=== PATIENT | female | born 1960 | race Caucasian/White ===

== ENCOUNTER 2018-06-20 16:06 | Emergency (ER) | payer MEDICARE, MEDICAID ==
[~2018-06-20] VITALS: Ht 154.9 cm; Wt 46.0 kg
[~2018-06-20 16:06] MED LIST: IBUP-24 PO; REM15T PO
[2018-06-20 16:32] VITALS: BP 109/82
== END 2018-06-20 17:32 | disposition left against medical advice (07) ==
LOC: ER 16:07
DX: H93.11 Tinnitus, right ear (principal); Z53.21 Procedure and treatment not carried out due to patient leaving prior to being seen by health care provider

== ENCOUNTER 2019-02-11 10:19 | Emergency (ER) | payer MEDICARE, MEDICAID ==
[~2019-02-11] VITALS: Ht 154.9 cm; Wt 45.0 kg
[2019-02-11 10:27] VITALS: BP 125/79
[2019-02-11] MEDS ORDERED: TETanus/Pertussis (Acell)/Diphther VAC/PF (Tdap-Adult) 0.5ml syringe IM ONE (10:55)
[2019-02-11] MEDS ORDERED: LIDOcaine 1% w/epiNEPHrine 1:200,000 30ml vial IM ONE (10:55)
[2019-02-11] MEDS ORDERED: sulfamethoxazole/trimethoprim DS (800/160mg) tablet PO ONE (10:55)
[2019-02-11] MEDS ORDERED: cephalexin 250mg capsule PO ONE (10:55)
[2019-02-11] MEDS ORDERED: SULF1TAB49 PO (11:53)
[2019-02-11] MEDS ORDERED: CEPH-572 PO (11:53)
--- NOTE | 2019-02-11 13:01 | NUR ---
PT STATES UNABLE TO WAIT THE HOUR FOR JUDD PEREZ WILL BORROW MONEY FROM [employer] FOR RX AND GET THEM FILLED TODAY.
== END 2019-02-11 13:01 | disposition home or self-care (01) ==
LOC: ER 10:20
DX: L02.811 Cutaneous abscess of head [any part, except face] (principal); L02.511 Cutaneous abscess of right hand; F12.90 Cannabis use, unspecified, uncomplicated; F15.90 Other stimulant use, unspecified, uncomplicated; Z90.49 Acquired absence of other specified parts of digestive tract; Z88.0 Allergy status to penicillin; Z88.5 Allergy status to narcotic agent
CPT/HCPCS: 10060; 26010; 90471; 90715; 99284; J3490

== ENCOUNTER 2019-04-07 11:06 | Emergency (ER) | payer MEDICARE, MEDICAID ==
[~2019-04-07] VITALS: Ht 160 cm; Wt 52.0 kg
[2019-04-07 11:18] VITALS: BP 128/75
[2019-04-07] MEDS ORDERED: MUPI22OI30 TP (11:38)
[2019-04-07] MEDS ORDERED: SULF1TAB49 PO (11:38)
== END 2019-04-07 11:48 | disposition home or self-care (01) ==
LOC: ER 11:06
DX: R21 Rash and other nonspecific skin eruption (principal); F32.9 Major depressive disorder, single episode, unspecified; F20.9 Schizophrenia, unspecified; F17.200 Nicotine dependence, unspecified, uncomplicated; F12.90 Cannabis use, unspecified, uncomplicated; F15.90 Other stimulant use, unspecified, uncomplicated; F10.99 Alcohol use, unspecified with unspecified alcohol-induced disorder; Z90.49 Acquired absence of other specified parts of digestive tract; Z60.2 Problems related to living alone; Z98.890 Other specified postprocedural states; Z88.6 Allergy status to analgesic agent; Z88.0 Allergy status to penicillin; Z88.5 Allergy status to narcotic agent; Z79.899 Other long term (current) drug therapy; Y90.9 Presence of alcohol in blood, level not specified
CPT/HCPCS: 99283

== ENCOUNTER 2019-05-25 13:44 | Emergency (ER) | payer MEDICARE, MEDICAID ==
[~2019-05-25] VITALS: Ht 154.9 cm; Wt 52.0 kg
[2019-05-25] MEDS ORDERED: LIDOcaine 1% w/EPI 1:200,000 injection 10mL vial IM ONE (14:25)
[2019-05-25] MEDS ORDERED: LORazepam 2 mg/ml vial IM ONE (14:25)
[2019-05-25] MEDS ORDERED: LIDOcaine 1% w/epiNEPHrine 1:200,000 30ml vial IM ONE (14:30)
[2019-05-25] MEDS ORDERED: DOXY100C43 PO (15:08)
[2019-05-25 15:25] VITALS: BP 125/79
--- NOTE | 2019-05-25 15:25 | NUR ---
WOUND CULTURE SENT
--- NOTE | 2019-05-25 15:36 | NUR ---
PATIENT PROVIDED CHLORHEXIDINE SOAP TO WASH HER ENTIRE BODY WITH PER PA. PATIENT ALSO PROVIDED FOOD AND DRINK UPON DISCHARGE WELL DRESSING SUPPLIES
== END 2019-05-25 15:37 | disposition home or self-care (01) ==
LOC: ER 13:45
DX: L02.811 Cutaneous abscess of head [any part, except face] (principal); F32.9 Major depressive disorder, single episode, unspecified; F20.9 Schizophrenia, unspecified; F15.90 Other stimulant use, unspecified, uncomplicated; F12.90 Cannabis use, unspecified, uncomplicated; Z90.49 Acquired absence of other specified parts of digestive tract; Z98.890 Other specified postprocedural states; Z88.0 Allergy status to penicillin; Z88.8 Allergy status to other drugs, medicaments and biological substances; Z88.5 Allergy status to narcotic agent; Z79.899 Other long term (current) drug therapy
CPT/HCPCS: 10060; 87070; 96372; 99283; J2060; 87077; 87186

== ENCOUNTER 2019-05-27 10:17 | Emergency (ER) | payer MEDICARE, MEDICAID ==
[~2019-05-27] VITALS: Ht 154.9 cm; Wt 44.5 kg
[~2019-05-27 10:17] MED LIST changes: +DOXY100C43 PO
--- NOTE | 2019-05-27 11:30 | NUR ---
Pt brought from fast track to [facility]. All her personal property is being inventoried by TYRESE Mckee. Pt has a history of drinking and in the past has experienced withdrawals. Hospitalist to see pt and place orders. Pt laying in bed #24 eating a P&J and drinking fluids.
[2019-05-27 11:31] LABS: BASOPHILS % (AUTO) 0.6 % (0-1); EOSINOPHILS # (AUTO) 0.1 X10'3 (0-0.9); EOSINOPHILS % (AUTO) 1.2 % (0-6); HEMATOCRIT 43.7 % (35.0-45.0); HEMOGLOBIN 14.9 g/dl (12.0-16.0); LYMPHOCYTES # (AUTO) 1.9 X10'3 (1.1-4.8); LYMPHOCYTES % (AUTO) 44.3 % (21-51); MEAN CORPUSCULAR HEMOGLOBIN 32.1 PG (27.0-31.0); MEAN CORPUSCULAR HGB CONC 34.1 g/dL (33.0-36.5); MEAN CORPUSCULAR VOLUME 94.1 FL (78-98); MONOCYTES # (AUTO) 0.5 X10'3 (0-0.9); MONOCYTES % (AUTO) 12.1 % (2-12); NEUTROPHILS # (AUTO) 1.8 X10'3 (1.8-7.7); NEUTROPHILS % (AUTO) 41.8 % (42-75); PLATELET COUNT 218 X10'3 (140-440); RED BLOOD COUNT 4.65 X10'6 (4.20-5.60); RED CELL DISTRIBUTION WIDTH 13.2 % (11.5-14.5); WHITE BLOOD COUNT 4.4 X10'3 (4.5-11.0)
[2019-05-27 11:49] LABS: CLARITY,URINE CLEAR (Clear); COLOR,URINE YELLOW (Yellow); GLUCOSE, URINE NEGATIVE (Neg); KETONES,URINE NEGATIVE (Neg); LEUKOCYTE ESTERASE ,URINE NEGATIVE (Neg); NITRITES, URINE NEGATIVE (Neg); OCCULT BLOOD,URINE SMALL (Neg); PH,URINE 5.5 (4.8-8.0); PROTEIN,URINE NEGATIVE (Neg); UA COLLECTION TYPE CLN CATCH MIDSTREAM; UROBILINOGEN,URINE 0.2 E.U/dL (0.2-1.0)
[2019-05-27 11:51] LABS: ALANINE AMINOTRANSFERASE 20 U/L (12-78); ALBUMIN 3.7 G/DL (3.4-5.0); ALBUMIN/GLOBULIN RATIO 0.9 (1.1-1.5); ALKALINE PHOSPHATASE 87 IU/L (46-116); ANION GAP 10 (8-16); ASPARTATE AMINO TRANSFERASE 13 U/L (10-37); BILIRUBIN,TOTAL 0.2 MG/DL (0.1-1.0); BLOOD UREA NITROGEN 17 MG/DL (7-18); BUN/CREATININE RATIO 28.3 (6.6-38.0); CALCIUM 8.5 MG/DL (8.5-10.1); CHLORIDE 105 MMOL/L (99-107); GLUCOSE 91 MG/DL (70-104); POTASSIUM 3.8 MMOL/L (3.5-5.1); SODIUM 143 MMOL/L (135-145); TOTAL CARBON DIOXIDE 27.9 MMOL/L (24-32); TOTAL PROTEIN 7.7 G/DL (6.4-8.2); eGFR > 90 ML/MIN
[2019-05-27 11:52] LABS: URINE AMPHETAMINE SCREEN NEGATIVE (Neg); URINE BARBITUATE SCREEN NEGATIVE (Neg); URINE BENZODIAZEPINES SCREEN NEGATIVE (Neg); URINE CANNABINOID SCREEN POSITIVE (Neg); URINE COCAINE SCREEN NEGATIVE (Neg); URINE METHADONE SCREEN NEGATIVE (Neg); URINE OPIATE SCREEN NEGATIVE (Neg); URINE PHENCYCLIDINE SCREEN NEGATIVE (Neg)
[2019-05-27 11:56] LABS: MUCUS STRANDS MANY /LPF (Neg); SQUAMOUS EPITHELIAL CELL,UR FEW /LPF (FEW)
[2019-05-27 11:58] LABS: BACTERIA,URINE FEW /HPF (Neg); WBC,URINE 0-4 /HPF (0-4)
[2019-05-27 12:01] LABS: ACETAMINOPHEN < 2.0 UG/ML (10-30)
--- NOTE | 2019-05-27 12:33 | NUR ---
Per Juan Ahn, PA start CIWA Protocol. Pt continues to eat while sitting on her bed. Does not appear to be in distress at this time but continues to ask for a beer.
[2019-05-27] MEDS ORDERED: nicotine 14mg patch - 24hr TD ONE (12:40)
[2019-05-27] MEDS ORDERED: LORazepam 1 MG tablet PO ONE (12:55)
--- NOTE | 2019-05-27 13:45 | NUR ---
Pt sleeping; unable to wake to administer Gabapentin after administering Ativan 2mg.
[2019-05-27] MEDS: LORazepam 1 MG tablet PO PRN ×2 (14:16→19:24)
--- NOTE | 2019-05-27 15:12 | NUR ---
Pt sleeping supine. No distress. RR even and unlabored. Will continue to monitor.
--- NOTE | 2019-05-27 15:35 | NUR ---
Unable to do CIWA pt sleeping will not work with this nurse to complete CIWA. RR even and unlabored. Does not appear to be in distress.
--- NOTE | 2019-05-27 17:22 | NUR ---
PACKET WAS FAXED TO [facility].
--- NOTE | 2019-05-27 17:35 | NUR ---
Pt continues to sleep will not open her eyes to answer questions on CIWA. RR even and unlabored.
--- NOTE | 2019-05-27 18:22 | NUR ---
Pt just now woke up. Unable to continue CIWA protocol. She is awake now Tunde RN will assess for CIWA.
--- NOTE | 2019-05-27 19:00 | NUR ---
Patient is awake and oriented to place and situation. Patient exhibits anxiety. Patient is on CIWA protocol. Patient states she is still suicidal, her plan is to get hit by a car or overdose on pills. Patient denies voices or other hallucinations. Eye contact is intermittent. Patient is tearful. Patients bed is in direct view from the nurses station. Frequent rounding is being done for patient safety.
--- NOTE | 2019-05-27 19:25 | NUR ---
Patient scored a 17 on the CIWA protocol. Ativan 2 mg will be given.
[2019-05-27] MEDS ORDERED: gabapentin 300mg capsule PO SCH (21:00)
--- NOTE | 2019-05-27 21:40 | NUR ---
Patient sleeping quietly.
[2019-05-27 23:46] VITALS: BP 117/72
[2019-05-28] MEDS ORDERED: NO HOME MEDS (10:38)
== END 2019-05-27 23:52 | disposition home or self-care (01) ==
LOC: ER 10:17
DX: F32.9 Major depressive disorder, single episode, unspecified (principal); R45.851 Suicidal ideations; F20.9 Schizophrenia, unspecified; F12.90 Cannabis use, unspecified, uncomplicated; F15.90 Other stimulant use, unspecified, uncomplicated; F17.200 Nicotine dependence, unspecified, uncomplicated; Z90.49 Acquired absence of other specified parts of digestive tract; Z59.0 Homelessness; Z88.0 Allergy status to penicillin; Z88.5 Allergy status to narcotic agent
CPT/HCPCS: 36415; 80053; 80305; 80329; 81001; 84443; 85025; 99285

== ENCOUNTER 2019-05-27 22:29 | Inpatient (IN) | payer MEDICARE, MEDICAID ==
[~2019-05-27] VITALS: Ht 154.9 cm; Wt 46.2 kg
[2019-05-27] MEDS ORDERED: magnesium hydroxide 30ml (MOM) UD suspension PO PRN (23:25)
[2019-05-27] MEDS ORDERED: mag hydrox/Alum hydrox/simeth 30ml oral suspension PO PRN (23:25)
[2019-05-27] MEDS ORDERED: acetaminophen 325mg tablet PO PRN (23:25)
[2019-05-27] MEDS ORDERED: loperamide 2mg capsule PO PRN (23:25)
[2019-05-28] VITALS: BP 133/86
[2019-05-28 03:30] VITALS: BP 96/57
--- NOTE | 2019-05-28 03:39 | NUR ---
ADMIT NOTE: Legal hold: 5150 Exp 05/30 @ 2350 Client on involuntary status for DTS. Report received from nurse with use of SBAR. Why are they here: Pt is very depressed. She reported that she wants to all the time. Pt attempted to throw herself in front of a car 05/26/19. Pt stated "she stated "I can't take it anymore." Pt was trying to obtain pills to overdose and "I have been trying to drink myself to ." Pt reports "I have nothing to live for." Assessment What has happened this shift: Pt admitted to [facility] on 5150 for DTS. Pt arrives on unit at 2350 with LUAN Montoya. Pt presents as sedated, having a hard time keeping eyes open and mumbled/slurred speech. Pt received 2mg Ativan in ER prior to coming to unit. Pt is taken to the shower room where a 2 Nurse Skin Assessment is performed and is changed into clean scrubs. Charted and photographed two scabbed areas on right side of head. Pt had I&D done on 05/25 for cellulitis (according to notes drainage from procure was mostly just blood). Area is tender, drainage is dry, but has potential for additional drainage. Will need to monitor. Pt was started on Doxycycline 100mg q12h x 10 days. Pt has a HX of ETOH with last drink being 3 days ago. Pt is on a CIWA q8h x 3, then Dr. Johnson will reevaluate. Pt has a hx of methamphetamine use, but indicates she hasn't used in some time. Pt's appears to have an impaired gait, when asked if she is usally unsteady "I am not sure why I am like this." (likely due to Ativan.) S/I, H/I: S/I- will overdose on pills. A/VH: Pt denies. Sleep: See sleep assessment notation. ADL's: Independent -may need further evaluation due to sedation on admit Group attendance: bench jeweler, no group. Were meds taken: No medications scheduled. Any med S/E: None observed Mental Status Exam Appearance: Disheveled, looks older than stated age, wearing green unit scrubs. Eye contact: Eyes closed Behavior: Sedated, cooperative Speech: Slurred/mumbled, minimal Mood: Sedated Affect: Congruent Thought process: Thought Content: Cognition: Alert x2 Insight: Poor Judgment: Poor Interventions PRN's used: None Therapeutic interventions: 1:1 therapeutic assessment, orient to unit, IRLANDALAUREN, Q15 min safety checks. Restraints/seclusion/emergency medication: N/A Justification of Continued Inpatient Treatment: Pt is depressed and DTS requiring medication management to interrupt current crisis. Addendum: 05/28/19 at 0510 by Annabelle Corley RN Pt has an upper plate denture. Pt states she likes to keep it in even when she sleeps. Pt opted to keep Nicotine patch on left shoulder. Addendum: 05/28/19 at 0557 by Annabelle Corley RN Pt woke up A&O. Pt vaguely remembers coming up to the unit last night. Pt is anxious rubbing her hands and arms. Pt is unable to hold conversation because she is crying "I still don't want to live, but I have too; for my dog." Will administer Atarax 50 mg Pt's CIWA is 0, VS 117/79, HR 73, RR 14, O2 95.
[2019-05-28] MEDS ORDERED: NICOTINE POLACRILEX 2 MG LOZENGE BC PRN (04:05)
[2019-05-28] MEDS: hydrOXYzine 25 MG tablet PO PRN ×2 (05:47→19:05)
[2019-05-28 07:00] VITALS: BP 108/69
[2019-05-28 07:33] LABS: HEMOGLOBIN A1C 5.5 % (4.5-6.2)
[2019-05-28 07:38] LABS: CHOL/HDL RATIO 3.8 (0.00-4.99); CHOLESTEROL 172 MG/DL (0-200); HDL CHOLESTEROL 45 MG/DL (35-60); LDL CHOLESTEROL 115 MG/DL (50-100); TRIGLYCERIDES 117 MG/DL (20-135)
[2019-05-28] MEDS ORDERED: nicotine 14mg patch - 24hr TD SCH (08:00)
[2019-05-28] MEDS: DOXYCYCLINE 100MG CAPSULE PO SCH ×2 (08:19→17:36)
[2019-05-28] MEDS: gabapentin 300mg capsule PO SCH ×3 (08:19→21:22)
[2019-05-28] MEDS: LORazepam 1 MG tablet PO PRN ×2 (09:55→19:34)
[2019-05-28] MEDS ORDERED: QUEtiapine 25mg tablet PO SCH (10:25)
[2019-05-28] MEDS ORDERED: NO HOME MEDS (10:38)
--- NOTE | 2019-05-28 13:13 | NUR ---
Malnutrition consult, patient reports recent weight loss without trying and poor intake d/t poor appetite. Weights 42.5 kg on standing scale. Review of documented weight history shows patient is chronically low weight. Within the past year patient has had weight fluctuations of 46 kg 06/2018 on chair scale, 52 kg 05/25/2019 on standing scale, and now 42.5 kg on standing scale. It is unlikely that patient lost 10 kg in three days. Patient appears to be around her UBW, with a total of about 3.5 kg, 8%, lost in one year. She is 89% of IBW. She ate 50% of her breakfast this morning. No edema. Noted that patient is homeless. Has dentures for upper teeth. Pending MD notes and history. Will continue to follow patient, monitor PO intake and course of care. Follow up tomorrow pending more information. Addendum: 05/28/19 at [address] Amended: Links added.
--- NOTE | 2019-05-28 15:59 | NUR ---
Nursing Progress Note: [place] Legal hold: 5150 Exp 05/30 @ 2350 Client on involuntary status for DTS. Report received from nurse Johanny RN with use of SBAR. Why are they here: Pt admitted to [facility] on 5149 for DTS. Pt is very depressed. She reported that she wants to all the time. Pt attempted to throw herself in front of a car 05/26/19. Pt stated "she stated "I can't take it anymore." Pt was trying to obtain pills to overdose and "I have been trying to drink myself to ." Pt reports "I have nothing to live for." Assessment What has happened this shift: Pt resting at change of shift. At breakfast presents as sedated with mumbled/slurred speech. She is compliant with her medications but is insistent on them "not working" and "never working" and her being helpless and hopeless. Shortly after breakfast pt became very agitated and verbally aggressive. She was found harassing/yelling anyone who would walk past her room, ripping up papers, throwing blankets and checking doors in attempt to leave. She is resistive to care and unable to be calmed by conversation as she is unwilling to talk in a meaningful way. She reports, "Will you just give me a pill of Cyanide? I don't want to live, I don't know why you're wasting your time! I'm going to play nice and get my ducks in a row so I can leave here and kill myself. I swear if anyone gets close to me I'll punch you all out." Decision Science Analyst attempted to decipher pts support system, she reports having a few friends, one of which is taking care of her dog (friend-Krystina). She becomes very guarded when speaking about her friends. She perseverates on being homeless and helpless. Decision Science Analyst unable to easily de-escalate. D/t acute agitation and aggressiveness she was given Seroquel 50mg PO Once along with Ativan 1mg PO. Pt found resting the rest of the shift. S/I, H/I: S/I- will overdose on pills. A/VH: Denies Sleep: 4.5hrs NOC ADL's: Independent Group attendance: Slept, too agitated to attend Were meds taken: Yes Any med S/E: None observed Mental Status Exam Appearance: Disheveled, looks older than stated age, wearing green unit scrubs. Eye contact: Direct, menacing Behavior: Volatile Speech: Slurred/mumbled, pressured, vulgar Mood: Labile Affect: Congruent Thought process: goal oriented Thought Content: Obscenities towards peers and staff, homelessness, fixations on dying, helplessness & hopelessness Cognition: Alert x2 (self & "hospital") Insight: Poor Judgment: Poor Interventions PRN's used: Ativan X1, Seroquel X1 Therapeutic interventions: 1:1 therapeutic assessment, orient to unit, CIWA, Q15 min safety checks. Restraints/seclusion/emergency medication: N/A Justification of Continued Inpatient Treatment: Pt is depressed and DTS requiring medication management to interrupt current crisis.
[2019-05-28] MEDS: lactobacillus rhamnosus 10,000 MMU CELLS/CAPSULE PO SCH (21:22)
[2019-05-29] MEDS: LORazepam 1 MG tablet PO PRN ×3 (02:12→17:20)
--- NOTE | 2019-05-29 02:52 | NUR ---
Nursing Progress Note: Legal hold: 5149 Exp 05/30 @ 2350 Client on involuntary status for DTS. Report received from nurse Jennifer RN with use of SBAR. Why are they here: Pt admitted to [facility] on 5149 for DTS. Pt is very depressed. She reported that she wants to all the time. Pt attempted to throw herself in front of a car 05/26/19. Pt stated "she stated "I can't take it anymore." Pt was trying to obtain pills to overdose and "I have been trying to drink myself to ." Pt reports "I have nothing to live for." Assessment What has happened this shift: Pt pacing halls and presents extremely agitated at shift change. Pt refused vitals, but was compliant with assessment. Pt was agitated and labile, "Why am I here." "Nothing is helping." "You know I am going to kill my self as soon as I get out of here." "I am out of here in two days and you can't stop me." "I need a rope, that is all that I need." Pt is difficult to deescalate, pt refuses Ativan, but will take an Atarax. Pt is negative that no medication will work and all she wants to do is . "I just want to leave an kill myself and I will take my dog with me." Pt perseverating on wanting to smoke, pt refused a lozenge -pt wearing a 14 mg Nicotine Patch will endorse to day shift about a possible increase to the 21 mg patch. Pt continues to walk the halls swearing under her breath, rubbing her hands and arms making comments about wanting to . This commercial lines underwriter was able to get pt to take prn Ativan with effect. Pt rested for about 1 1/2 woke up was much more calm and cooperative. Pt was compliant with HS medications, then went back to sleep. Pt woke up around 0230 and wanted to shower. Exp she could shower in the morning. Pt was mildly agitated, but remained calm. Pt was able to have a calm conversation. She didn't remember how labile she was the day before. Pt apologized, pt became emotional "all I want is a house just like everyone else." Pt still a little agitated at requested "another one of those pills." Pt continued to talk calmly until this commercial lines underwriter got up and let pt sleep. S/I, H/I: S/I- will overdose on pills. A/VH: Pt denies. 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 Eye contact: Direct, menacing Behavior: Volatile, agitated Speech: Slurred/mumbled, pressured Mood: Labile, depressed Affect: Congruent Thought process: Tangential, perseverating Thought Content: Homelessness, fixations on dying, helplessness & hopelessness Cognition: Alert x2 (self & "hospital") Insight: Poor Judgment: Poor Interventions PRN's used: Atarax, Ativan x2 Therapeutic interventions: 1:1 therapeutic assessment, CIWA q8h, medication administration/education/monitoring, attempted contract for safety, Q15 min safety checks. Restraints/seclusion/emergency medication: N/A Justification of Continued Inpatient Treatment: Pt is depressed and DTS requiring medication management to interrupt current crisis.
[2019-05-29] MEDS: gabapentin 300mg capsule PO SCH ×3 (07:11→21:04)
[2019-05-29] MEDS: lactobacillus rhamnosus 10,000 MMU CELLS/CAPSULE PO SCH ×2 (07:11→21:04)
[2019-05-29] MEDS: hydrOXYzine 25 MG tablet PO PRN ×2 (07:11→17:18)
[2019-05-29 08:00] VITALS: BP 105/84
[2019-05-29] MEDS: DOXYCYCLINE 100MG CAPSULE PO SCH ×2 (08:18→17:18)
[2019-05-29] MEDS: nicotine 21mg patch - 24 hr TD SCH (08:18)
--- NOTE | 2019-05-29 14:00 | NUR ---
Administered Ativan 1mg for agitation/anxiety, med did not scan.
--- NOTE | 2019-05-29 14:40 | NUR ---
Malnutrition consult, patient reports recent weight loss without trying and poor intake d/t poor appetite. Weights 42.5 kg on standing scale. Review of documented weight history shows patient is chronically low weight. Within the past year patient has had weight fluctuations of 46 kg 06/2018 on chair scale, 52 kg 05/25/2019 on standing scale, and now 42.5 kg on standing scale. It is unlikely that patient lost 10 kg in three days. Patient appears to be around her UBW, with a total of about 3.5 kg, 8%, lost in one year. She is 89% of IBW. She ate 50% of her breakfast yesterday and dinner, refused lunch. Patient admitted with severe depression and SI. No edema. Noted that patient is homeless. Has dentures for upper teeth. Patient has heavy EtOH history, drinking two pints a day, may benefit from PO thiamine and folic acid, d/w bedside RN. Per bedside RN patient is ravenous and happy when meals arrive, eating well today. Will continue to follow. Addendum: 05/29/19 at [address] Amended: Links added.
--- NOTE | 2019-05-29 18:23 | NUR ---
Nursing Progress Note Legal hold: 5149 Exp 05/30 @ 2350 Client on involuntary status for DTS. Report received from nurse Annabelle LANDAVERDE with use of SBAR. Why are they here: Pt admitted to [facility] on 5149 for DTS. Pt is very depressed. She reported that she wants to all the time. Pt attempted to throw herself in front of a car 05/26/19. Pt stated "she stated "I can't take it anymore." Pt was trying to obtain pills to overdose and "I have been trying to drink myself to ." Pt reports "I have nothing to live for." Assessment What has happened this shift: Patient is observed resting at change of shift. When she wakes she anxious, restless and mild agitation. Over coffee she tells RN that she just wants to . She becomes tearful and shakey when discussing how she hates living life. RN allowed patient time to state how she felt and offered patient a snack. Patient thankfully ate what was offered. RN provided PRNs needed for anxiety and patients mood never became agitated as in prior shifts. Patient helped peers and attended groups. Patient responds well to positive reinforcement, listening and food. S/I, H/I: S/I no plan stated A/VH: Denies Sleep: 7.75hrs NOC and rested during the day ADL's: Independent Group attendance: yes Were meds taken: Yes Any med S/E: None observed Mental Status Exam Appearance: Disheveled Eye contact: Direct Behavior: depressed Speech: soft tone, increased rate when agitated Mood: depressed Affect: Congruent Thought process: goal oriented Thought Content: not wanting to be alone Cognition: Alert x2 (self & "hospital") Insight: Poor Judgment: Poor Interventions PRN's used: Ativan X2 and Atarax x2 Therapeutic interventions: 1:1 assessment, encouragement to express thoughts and feelings, encouragement to perform personal hygiene, encouragement to attend group, medication administration/education/monitoring, Q15 min safety checks. Restraints/seclusion/emergency medication: N/A Justification of Continued Inpatient Treatment: Continued therapeutic support and medication adjustment/management needed to provide stabilization, prevent decompensation, improve coping mechanisms decreasing risk to patient and re-admittance.
[2019-05-29 19:00] VITALS: BP 111/76
[2019-05-29 21:00] VITALS: BP 108/72
[2019-05-29] MEDS: prazosin 1mg capsule PO SCH (21:00)
[2019-05-29] MEDS: traZODone 50mg tablet PO PRN (21:11)
[2019-05-30] MEDS: acetaminophen 325mg tablet PO PRN (00:38)
[2019-05-30] MEDS: LORazepam 1 MG tablet PO PRN ×4 (00:41→15:45)
--- NOTE | 2019-05-30 01:58 | NUR ---
Nursing Progress Note: Legal hold: 5149 Exp 05/30 @ 2350 Client on involuntary status for DTS. Report received from nurse Jennifer RN with use of SBAR. Why are they here: Pt admitted to [facility] on 5149 for DTS. Pt is very depressed. She reported that she wants to all the time. Pt attempted to throw herself in front of a car 05/26/19. Pt stated "she stated "I can't take it anymore." Pt was trying to obtain pills to overdose and "I have been trying to drink myself to ." Pt reports "I have nothing to live for." Assessment What has happened this shift: Pt was visible on unit, noticeably less agitated and anxious compared to last night. Pt is still depressed, but seems to be more goal oriented and talks about how she was able to asssit one of her peers with eating his meals. Pt states she likes to help people, this science writer believes this gives her a purpose. Pt is more positive. Pt is medication compliant. Pt continues to be have wheezing in her upper lobes. Will endorse to day shift for possible RT consult (pt has hx of COPD). Pt's Minipress was held due to low BP 108/74. Pt c/o of being hungry, gave pt PB&J. Assessed abscess on right side of head, no drainage noted. Pt had showered and cleaned up wound area. CIWA q8h. S/I, H/I: Passive - no plan stated A/VH: Pt denies. Sleep: See sleep assessment notation. 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 Eye contact: Good Behavior: Cooperative, mildly anxious Speech: Soft, mumbled at times Mood: Depressed, anxious Affect: Congruent Thought process: Linear Thought Content: Discharge to [facility] Cognition: Alert x2 (self & "hospital") Insight: Poor Judgment: Poor Interventions PRN's used: Ativan, Tylenol Therapeutic interventions: 1:1 therapeutic assessment, CIWA q8h, medication administration/education/monitoring, Q15 min safety checks. Restraints/seclusion/emergency medication: N/A Justification of Continued Inpatient Treatment: Pt is depressed and DTS requiring medication management to interrupt current crisis.
[2019-05-30 08:00] VITALS: BP 111/78
[2019-05-30] MEDS: nicotine 21mg patch - 24 hr TD SCH (08:04)
[2019-05-30] MEDS: DOXYCYCLINE 100MG CAPSULE PO SCH ×2 (08:06→16:35)
[2019-05-30] MEDS: buPROPion SR 150mg tablet PO SCH (08:06)
[2019-05-30] MEDS: gabapentin 300mg capsule PO SCH ×3 (08:06→19:52)
[2019-05-30] MEDS: lactobacillus rhamnosus 10,000 MMU CELLS/CAPSULE PO SCH ×2 (08:07→19:52)
[2019-05-30] MEDS: hydrOXYzine 25 MG tablet PO PRN ×2 (10:35→16:35)
--- NOTE | 2019-05-30 17:27 | NUR ---
Nursing Progress Note: Legal hold: 5149 Exp 05/30 @ 2350 Client on involuntary status for DTS. Report received from nurse AKHIL Mondragon with use of SBAR. Why are they here: Pt admitted to [place] on 5149 for DTS. Pt is very depressed. She reported that she wants to all the time. Pt attempted to throw herself in front of a car 05/26/19. Pt stated "she stated "I can't take it anymore." Pt was trying to obtain pills to overdose and "I have been trying to drink myself to ." Pt reports "I have nothing to live for." Assessment What has happened this shift: The patient was awake at change of shift. Irritable all day and stating I'm leaving here today. Stated she was going to "kill myself" numerous times today and was angry about not being "released" right away. CIWA scoring required Ativan twice this shift. When informed of 5249 hold she became very angry and abusive to staff. However, this patient does respond well to kindness and reassurance. She is frightened of being homeless and does not know where she will "go." S/I, H/I: Suicidal, wants to hang herself A/VH: Pt denies. Sleep: Napped ADL's: Independent Group attendance: Yes Were meds taken: Medication compliant Any med S/E: None observed Mental Status Exam Appearance: Disheveled, looks older than stated age, wearing green unit scrubs and a wig Eye contact: Good Behavior: Agitation Speech: Soft, mumbled at times Mood: Depressed, anxious Affect: Angry Thought process: Linear Thought Content: wants to kill herself Cognition: Alert x2 (self & "hospital") Insight: Poor Judgment: Poor Interventions PRN's used: Ativan, Atarax Therapeutic interventions: 1:1 therapeutic assessment, CIWA q8h, medication administration/education/monitoring, Q15 min safety checks. Restraints/seclusion/emergency medication: N/A Justification of Continued Inpatient Treatment: Pt is depressed and DTS requiring medication management to interrupt current crisis.
[2019-05-30] MEDS: prazosin 1mg capsule PO SCH (19:52)
[2019-05-30 20:00] VITALS: BP 124/76
[2019-05-31] MEDS: acetaminophen 325mg tablet PO PRN (02:15)
[2019-05-31] MEDS: hydrOXYzine 25 MG tablet PO PRN ×3 (02:15→17:17)
--- NOTE | 2019-05-31 04:36 | NUR ---
Nursing Progress Note: Legal hold: 525 Client on involuntary status for DTS. Report received from nurse AKHIL Cheney with use of SBAR. Why are they here: Pt admitted to [facility] on 5150 for DTS. Pt is very depressed. She reported that she wants to all the time. Pt attempted to throw herself in front of a car 05/26/19. Pt stated "she stated "I can't take it anymore." Pt was trying to obtain pills to overdose and "I have been trying to drink myself to ." Pt reports "I have nothing to live for." Assessment What has happened this shift: The patient resting in room at change of shift. During 1:1, pt quickly became agitated, agry and verbally abusive towards this RN. "I don't want you to be my nurse! You're a bitch. You can't help me. I just want to and I will do it as soon as I leave." Pt is upset regarding her 525, as she continues "I'm being held against my will and you will pay for it. Give me meds and get out of my room!" Reassurance and kindness did not help calm pt; this RN adminstered Hs medications early and provided pt with a sandwich. Pt went to sleep and awoke around 2am requesting pain medication and additional sleep aid. Pt stated "I am sorry for how I acted. That wasn't okay." Pt had a snack then returned to sleep. CIWA scoring completed; pt did not receive Ativan this shift. S/I, H/I: +SI with plan to hang herself with a rope A/VH: Denies Sleep: See Sleep Assessment ADL's: Independent Group attendance: N/A Were meds taken: Yes Any med S/E: None observed nor reported Mental Status Exam Appearance: Disheveled, looks older than stated age, wearing green unit scrubs and a wig Eye contact: Good Behavior: Pacing halls, Resting in room, Attending snack Speech: Soft, Occasionally Mumbled, Intermittently Pressured Mood: Depressed, Agitated, Labile Affect: Angry Thought process: Linear Thought Content: wants to kill herself Cognition: Alert x2 (self & "hospital") Insight: Poor Judgment: Poor Interventions PRN's used: Atarax, Tylenol Therapeutic interventions: 1:1 therapeutic assessment, CIWA q8h, medication administration/education/monitoring, Q15 min safety checks. Restraints/seclusion/emergency medication: N/A Justification of Continued Inpatient Treatment: Pt is depressed and DTS requiring medication management to interrupt current crisis.
[2019-05-31 07:33] VITALS: BP 112/78
[2019-05-31] MEDS: nicotine 21mg patch - 24 hr TD SCH (07:58)
[2019-05-31] MEDS: lactobacillus rhamnosus 10,000 MMU CELLS/CAPSULE PO SCH ×2 (07:58→20:31)
[2019-05-31] MEDS: gabapentin 300mg capsule PO SCH ×3 (07:58→20:31)
[2019-05-31] MEDS: buPROPion SR 150mg tablet PO SCH (07:58)
[2019-05-31] MEDS: DOXYCYCLINE 100MG CAPSULE PO SCH ×2 (08:01→17:26)
[2019-05-31] MEDS: LORazepam 1 MG tablet PO PRN ×2 (08:01→14:08)
[2019-05-31] MEDS ORDERED: tuberculin, purif. prot. deriv. 5 units/0.1ml ID ONE (13:25)
--- NOTE | 2019-05-31 17:00 | NUR ---
Nursing Progress Note: Legal hold: 5249 Client on involuntary status for DTS. Report received from nurse Ese Fitzpatrick RN with use of SBAR. Why are they here: Pt admitted to [facility] on 5149 for DTS. Pt is very depressed. She reported that she wants to all the time. Pt attempted to throw herself in front of a car 05/26/19. Pt stated "she stated "I can't take it anymore." Pt was trying to obtain pills to overdose and "I have been trying to drink myself to ." Pt reports "I have nothing to live for." Assessment What has happened this shift: Pt. asleep at start of shift. Pt. is irritable, hyperverbal, impulsive, and difficult to redirect. Pt. given ativan 1mg po with good effect. Pt. took medications but did not eat all her breakfast stating, "I don't eat eggs!". Pt. then went to her room and slept. 1:1 done at bedside. Pt. states, "I wanted to kill myself because I thought I was all alone... I realize I have a lot of people who care about me. And I want to be there for my dog AJ. I'm no longer suicidal. Pt.'s CIWA in AM was 6. Pt.'s CIWA discontinued today. Pt. reporting her anxiety is 7/10 and received Ativan with good effect. Pt. refused her PPD test, stating, "I already received one at [facility] 1 month ago" RN received ERICA from patient and attempted to contact [facility] to receive documentation of negative PPD, RN called [facility] but was unable to speak to anyone and unable leave a voice mail. S/I, H/I: Denies A/VH: Denies Sleep: Pt. napped x2 ADL's: Independent Group attendance: No Were meds taken: Yes. Pt. refused PPD test. Any med S/E: None observed nor reported Mental Status Exam Appearance: Pt. showered today. presents clean in street clothes and wig. Eye contact: Good Behavior: Pacing halls, Resting in room, Attending snack Speech: Soft, Occasionally Mumbled, Intermittently Pressured Mood: Irritable and anxious in AM but pt.'s mood became more stable in the afternoon. Affect: Congruent with mood. Thought process: Linear Thought Content: wants to kill herself Cognition: A&Ox4 Insight: Fair Judgment: Poor Interventions PRN's used: Atarax, Ativan Therapeutic interventions: Maintained a safe and supportive environment, provided clear and simple instructions, monitored behaviors and need for intervention, provided positive encouragement, and maintained Q 15 min safety checks. Restraints/seclusion/emergency medication: N/A Justification of Continued Inpatient Treatment: Pt. continues to await court date, in the next two weeks or so per Dr. Johnson. She continues to requires a safe and supportive environment.
[2019-05-31 19:00] VITALS: BP 127/76
[2019-05-31 20:00] VITALS: BP 125/84
[2019-05-31] MEDS: traZODone 50mg tablet PO PRN (20:31)
[2019-05-31] MEDS: prazosin 1mg capsule PO SCH (20:31)
--- NOTE | 2019-06-01 00:58 | NUR ---
Nursing Progress Note: Legal hold: 5249 Client on involuntary status for DTS. Report received from nurse Noni RN with use of SBAR. Why are they here: Pt admitted to [facility] on 5149 for DTS. Pt is very depressed. She reported that she wants to all the time. Pt attempted to throw herself in front of a car 05/26/19. Pt stated "she stated "I can't take it anymore." Pt was trying to obtain pills to overdose and "I have been trying to drink myself to ." Pt reports "I have nothing to live for." Assessment What has happened this shift: Pt walking about the unit at change of shift. Pt overall demeanor much calmer than previous night and pt stated "I'm doing okay. I have a reason to live. I want to go to the [facility]; I hope they take me but if not, it's okay, there is someone who will." Pt expressed missing her dog, EDDA. She states she is anxious, saying she is nervous about her placement interview tomorrow. Pt is cooperative and pleasant but does not brighten during assessment. She requests her sleeping aid this evening and some extra snacks before turning in to sleep. S/I, H/I: Denies A/VH: Denies Sleep: See Sleep Assessment ADL's: Independent Group attendance: N/A Were meds taken: Yes Any med S/E: None observed nor reported Mental Status Exam Appearance: Disheveled, looks older than stated age, wearing personal clothes and nonskid socks Eye contact: Good Behavior: Pacing halls, Resting in room, Attending snack, watching TV, Coloring Speech: Soft, Occasionally Mumbled, Intermittently Pressured Mood: Anxious /10 Affect: Blunted Thought process: Linear Thought Content: Nervous about interview for placement tomorrow, wanting sandwiches Cognition: A/Ox3 (off for time) Insight: Poor Judgment: Poor Interventions PRN's used: Trazodone Therapeutic interventions: 1:1 therapeutic assessment, CIWA q8h, medication administration/education/monitoring, Q15 min safety checks. Restraints/seclusion/emergency medication: N/A Justification of Continued Inpatient Treatment: Pt is depressed and DTS requiring medication management to interrupt current crisis.
[2019-06-01 07:23] VITALS: BP 128/77
[2019-06-01] MEDS: lactobacillus rhamnosus 10,000 MMU CELLS/CAPSULE PO SCH ×2 (07:43→19:30)
[2019-06-01] MEDS: nicotine 21mg patch - 24 hr TD SCH (07:43)
[2019-06-01] MEDS: buPROPion SR 150mg tablet PO SCH (07:44)
[2019-06-01] MEDS: LORazepam 1 MG tablet PO PRN ×2 (07:44→15:02)
[2019-06-01] MEDS: DOXYCYCLINE 100MG CAPSULE PO SCH ×2 (07:44→17:49)
[2019-06-01] MEDS: gabapentin 300mg capsule PO SCH ×3 (07:44→19:29)
--- NOTE | 2019-06-01 14:20 | NUR ---
Initial: PO intake is fair, eating average of 50-75% of meals from regular diet. Per nursing notes she gets snacks as well. Pt was refusing meals when admitted, intake appears to be improving. Recommend: 1. continue regular diet 2. bowel care as needed 3. weekly weights 4. encourage PO intake Addendum: 06/01/19 at [address] Amended: Links added.
--- NOTE | 2019-06-01 17:25 | NUR ---
Nursing Progress Note: Legal hold: 5249 Client on involuntary status for DTS. Report received from nurse AKHIL Mondragon with use of SBAR. Why are they here: Pt admitted to [facility] on 5149 for DTS. Pt is very depressed. She reported that she wants to all the time. Pt attempted to throw herself in front of a car 05/26/19. Pt stated "she stated "I can't take it anymore." Pt was trying to obtain pills to overdose and "I have been trying to drink myself to ." Pt reports "I have nothing to live for." Assessment What has happened this shift: Pt on her bed resting at the start of shift. Morning administration of medications given at bedside during 1:1 assessment. Pt requesting Ativan but had it at 0611. Pt spent part of the morning on the phone and becoming anxious after each phone call. She was unwilling to share the reason for her upset. Pt attended both groups with much prompting and encouragement. She was interviewed by [facility] today. S/I, H/I: Denies A/VH: Denies Sleep: Awake all shift ADL's: Independent Group attendance: Yes Were Meds taken: Yes Any med S/E: None observed nor reported Mental Status Exam Appearance: Disheveled, looks older than stated age, wearing personal clothes and nonskid socks. changes clothes frequently along with putting her wig on and taking it off. Eye contact: fair Behavior: easily agitated Speech: Soft, Pressured Mood: Anxious 6/10 Affect: Blunted Thought process: Linear Thought Content: Cognition: A/Ox3 Insight: Poor Judgment: Poor Interventions PRN's used: Ativan Therapeutic interventions: 1:1 therapeutic assessment, encouragement and prompts to go to groups, medication administration/education/monitoring, Q15 min safety checks. Restraints/seclusion/emergency medication: N/A Justification of Continued Inpatient Treatment: Pt is depressed and DTS requiring medication management to interrupt current crisis.
[2019-06-01] MEDS: hydrOXYzine 25 MG tablet PO PRN (17:49)
--- NOTE | 2019-06-01 18:45 | NUR ---
[facility] REFERRAL: [facility] referral completed and faxed. [facility] referral completed and faxed. Pt understands program and expectations for services through both resources. Chelly Edwards, Nurse Navigator NET MAKING SUPERVISOR [id number] Supervised by Lorne Sofia, [id number]
[2019-06-01] MEDS: traZODone 50mg tablet PO PRN (19:29)
[2019-06-01] MEDS: prazosin 1mg capsule PO SCH (19:29)
[2019-06-01 20:00] VITALS: BP 121/80
--- NOTE | 2019-06-01 23:48 | NUR ---
Nursing Progress Note: Legal hold: 5249 Client on involuntary status for DTS. Report received from nurse AKHIL Bishop with use of SBAR. Why are they here: Pt admitted to [facility] on 5149 for DTS. Pt is very depressed. She reported that she wants to all the time. Pt attempted to throw herself in front of a car 05/26/19. Pt stated "she stated "I can't take it anymore." Pt was trying to obtain pills to overdose and "I have been trying to drink myself to ." Pt reports "I have nothing to live for." Assessment What has happened this shift: Pt pacing in halls at start of shift. Pt became increasingly agitated. Began yelling at a staff member who was unaware of plan to go to [facility]. Pt yelling "I can leave anytime I want" Pt had no PRNs available at the time. Jonathan Kranthi contacted by phone he declined to order extra medications for pt. Pt spent time in her room talking with SW. Given warm blanket and hot tea. Pt able to calm down. Came to group room for snack took all HS meds. Cooperative with care. Sleeping at this time. S/I, H/I: Denies A/VH: Denies Sleep: Asleep at this time ADL's: Independent Group attendance: Yes Were Meds taken: Yes Any med S/E: None observed nor reported Mental Status Exam Appearance: Disheveled, looks older than stated age, wearing personal clothes and nonskid socks. changes clothes frequently along with putting her wig on and taking it off. Eye contact: fair Behavior: easily agitated Speech: Soft, Pressured Mood: Anxious 6/10 Affect: Blunted Thought process: Linear Thought Content: Wants to go to [facility] upset about involuntary hold Cognition: A/Ox3 Insight: Poor Judgment: Poor Interventions PRN's used: none Therapeutic interventions: 1:1 therapeutic assessment, encouragement and prompts to go to groups, medication administration/education/monitoring, Q15 min safety checks. Restraints/seclusion/emergency medication: N/A Justification of Continued Inpatient Treatment: Pt is depressed and DTS requiring medication management to interrupt current crisis.
[2019-06-02 07:56] VITALS: BP 113/74
[2019-06-02] MEDS: lactobacillus rhamnosus 10,000 MMU CELLS/CAPSULE PO SCH ×2 (07:58→20:20)
[2019-06-02] MEDS: gabapentin 300mg capsule PO SCH ×3 (07:59→20:21)
[2019-06-02] MEDS: DOXYCYCLINE 100MG CAPSULE PO SCH ×2 (07:59→17:33)
[2019-06-02] MEDS: buPROPion SR 150mg tablet PO SCH (07:59)
[2019-06-02] MEDS: nicotine 21mg patch - 24 hr TD SCH (07:59)
--- NOTE | 2019-06-02 11:02 | NUR ---
DISCHARGE PLANNING: Patient declined by the [facility]. Offered to call [facility] for her, she declined.
[2019-06-02] MEDS: LORazepam 1 MG tablet PO PRN ×2 (12:35→20:22)
--- NOTE | 2019-06-02 13:06 | NUR ---
DISCHARGE PLANNING: Sent in referral packet for whole person care, they meet again Oct. 8 and will have no information prior to that on if she is accepted into the program, client aware.
--- NOTE | 2019-06-02 16:39 | NUR ---
Nursing Progress Note: Legal hold: 5249 Client on involuntary status for DTS. Report received from nurse Johanny RN with use of SBAR. Why are they here: Pt admitted to [facility] on 5149 for DTS. Pt is very depressed. She reported that she wants to all the time. Pt attempted to throw herself in front of a car 05/26/19. Pt stated "she stated "I can't take it anymore." Pt was trying to obtain pills to overdose and "I have been trying to drink myself to ." Pt reports "I have nothing to live for." Assessment What has happened this shift: Pt on her bed sleeping at the start of shift. Morning administration of medications given at bedside during 1:[address] [facility] admission and became upset threatening to escape then called a friend for a ride to pick her up. Pt confronted on wanting to leave. Pt contracted for safety stating she would not "really run." Pt given Ativan due to level of agitation and anxiety. S/I, H/I: Denies A/VH: Denies Sleep: Awake all shift ADL's: Independent Group attendance: Yes Were Meds taken: Yes Any med S/E: None observed nor reported Mental Status Exam Appearance: still has not showered Eye contact: fair Behavior: easily agitated Speech: Pressured Mood: Anxious 5/10 Affect: Blunted Thought process: Linear Thought Content: Leaving here to "drink." Cognition: A/Ox3 Insight: Poor Judgment: Poor Interventions PRN's used: Ativan Therapeutic interventions: 1:1 therapeutic assessment, encouragement and prompts to go to groups, safety contract, medication administration/education/monitoring, Q15 min safety checks. Restraints/seclusion/emergency medication: N/A Justification of Continued Inpatient Treatment: Pt is depressed and DTS requiring medication management to interrupt current crisis.
[2019-06-02] MEDS: hydrOXYzine 25 MG tablet PO PRN (19:04)
[2019-06-02 20:00] VITALS: BP 110/69
[2019-06-02] MEDS: prazosin 1mg capsule PO SCH (20:21)
--- NOTE | 2019-06-02 22:01 | NUR ---
Nursing Progress Note: Legal hold: 5249 Client on involuntary status for DTS. Report received from nurse Jennifer RN with use of SBAR. Why are they here: Pt admitted to [facility] on 5149 for DTS. Pt is very depressed. She reported that she wants to all the time. Pt attempted to throw herself in front of a car 05/26/19. Pt stated "she stated "I can't take it anymore." Pt was trying to obtain pills to overdose and "I have been trying to drink myself to ." Pt reports "I have nothing to live for." Assessment What has happened this shift: Pt up in flores at the start of shift. Pt aproched this nurse asking for Ativan stating that the prior nurse refused to give it to her. Checked Mar and she had one a few hrs prior. Pt agitated over not getting her way. S/I, H/I: Denies A/VH: Denies Sleep: Awake all shift ADL's: Independent Group attendance: Yes Were Meds taken: Yes Any med S/E: None observed nor reported Mental Status Exam Appearance: still has not showered Eye contact: fair Behavior: easily agitated Speech: Pressured Mood: Anxious 5/10 Affect: Blunted Thought process: Linear Thought Content: Leaving here to "drink." Cognition: A/Ox3 Insight: Poor Judgment: Poor Interventions PRN's used: AtivanAtarax Therapeutic interventions: 1:1 therapeutic assessment, encouragement and prompts to go to groups, safety contract, medication administration/education/monitoring, Q15 min safety checks. Restraints/seclusion/emergency medication: N/A Justification of Continued Inpatient Treatment: Pt is depressed and DTS requiring medication management to interrupt current crisis.
[2019-06-03 07:48] VITALS: BP 111/69
[2019-06-03 08:00] VITALS: BP 111/69
[2019-06-03] MEDS: lactobacillus rhamnosus 10,000 MMU CELLS/CAPSULE PO SCH ×2 (08:01→20:00)
[2019-06-03] MEDS: buPROPion SR 150mg tablet PO SCH (08:01)
[2019-06-03] MEDS: gabapentin 300mg capsule PO SCH ×3 (08:01→21:00)
[2019-06-03] MEDS: hydrOXYzine 25 MG tablet PO PRN ×2 (08:02→16:52)
[2019-06-03] MEDS: nicotine 21mg patch - 24 hr TD SCH (08:05)
[2019-06-03] MEDS: DOXYCYCLINE 100MG CAPSULE PO SCH ×2 (08:21→17:53)
[2019-06-03] MEDS: LORazepam 1 MG tablet PO PRN ×2 (08:21→17:54)
--- NOTE | 2019-06-03 10:24 | NUR ---
Nursing Progress Note: Legal hold: 5249 Client on involuntary status for DTS. Report received from nurse Johanny RN with use of SBAR. Why are they here: Pt admitted to [facility] on 5149 for DTS. Pt is very depressed. She reported that she wants to all the time. Pt attempted to throw herself in front of a car 05/26/19. Pt stated "she stated "I can't take it anymore." Pt was trying to obtain pills to overdose and "I have been trying to drink myself to ." Pt reports "I have nothing to live for." Assessment What has happened this shift: Pt up before breakfast,reluctantly allowed physical assessment commenting how we've already done this too many times. Pt is resistant to care, she has many complaints about not being to keep her door shut, about staff coming in to check on her, about being held against her will. Pt stated "I asked for help and this is what happened! You locked me up! I'm going to tell everyone not to ask for help!" Pt stated that it was her right to go drink if she wanted to and that as soon as she got out of here she was going to kill herself and there was nothing anyone could do to stop her. Pt looked around her room and stated ways she could kill herself here if she wanted to . Reinforced that this is why she can't have her door shut completely and why staff checks on her Q 15 minutes. Pt told this RN to get out of her room. Pt is volatile, she yells, is verbally abusive cussing at staff and calling them names. Pt was very angry at this RN this morning because she wanted Ativan with her morning meds. Explained that this RN had to follow doctor's orders and the orders are to give Atarax first and if ineffective, then prn Ativan can be given. Pt went off on a tirade of profanities, threatened this nurse by saying that if I would not give her Ativan right now that she was going to throw water on me. (Pt had her water pitcher in her hand at the time.) Show of support initiated by other staff present on the unit. Pt took her scheduled meds and the prn Atarax reluctantly stating "Fine! Give me all those pills. Sedate me! Just knock me out and kill me!" Pt then stated "I took the Atarax now give me the Ativan!" Explained that she could have the Ativan but not until after at least half an hour to see if the Atarax had been effective. Pt remained in her room and continued her verbal tirade. Pt opened her door around 20 minutes later asking if she could please have her Ativan now. Pt was still anxious and agitated though making an effort to be polite, prn Ativan given at 0821. Pt is calm and quiet at this time. Discussed Ativan situation with CARLI Crisostomo. PA instructed to stop the Ativan, he stated that he planned to discharge the patient today. Notified him that pt was making suicidal statements that she would kill herself as soon as we let her go. PA met with pt, pt made the same statements to him, pt remains on a 5250 with no plans for discharge today. S/I, H/I: Pt is endorsing SI, stating that she will kill herself as she leaves here. A/VH: Pt denies, no s/sx of responding to internal stimuli Sleep: Pt slept 6.5 hours per noc shift report ADL's: Independent Group attendance: No Were Meds taken: Yes, reluctantly; she only wanted Ativan and a nicotine patch this morning, needed encouragement to take other meds. Any med S/E: None noted or reported Mental Status Exam Appearance: small thin woman with very short hair, wears a wig at times. Eye contact: fair Behavior: Resistant to care, volatile, verbally aggressive/abusive to staff, demanding, accusatory Speech: Pressured, uses frequent profanities Mood: Angry, anxious Affect: Agitated Thought process: Suspicious, paranoid Thought Content: wants Ativan, wants to get out of here to go drink, wants out of here to go and kill herself Cognition: A/O X 4 Insight: Poor Judgment: Poor Interventions PRN's used: Atarax 50 mg, Ativan 1 mg Therapeutic interventions: 1:1 assessment, active listening, therapeutic conversation, limit setting, redirection, reality orientation, medication administration/education/monitoring, Q15 min safety checks. Restraints/seclusion/emergency medication: N/A Justification of Continued Inpatient Treatment: Pt remains a DTS with statements of intent to kill herself as soon as she is discharged, pt is an alcoholic, pt is homeless.
--- NOTE | 2019-06-03 11:11 | NUR ---
Reassessment: Patient's appetite seems to be improving, documented with consistent 75-100% PO intake since last RD assessment however noted that pt documented to have refused breakfast this morning. Per physical assessment pt resistive to care. [facility] 06/02. Will continue to follow and make recommendations as appropriate. Recommend: 1. continue regular diet 2. bowel care as needed 3. weekly weights 4. encourage PO intake Addendum: 06/03/19 at [address] Amended: Links added.
--- NOTE | 2019-06-03 12:18 | NUR ---
Nursing progress note continued: Pt approached this nurse at 1150 requesting coffee. Provided coffee to the patient and used the opportunity to assess her further. Pt admits to hearing voices at times that yell at her and call her names. Pt broke into tears and stated, "I'm a bad person, I deserve to be here." Pt indicated that she was a bad person because of her drinking. "Alcohol is all I have but I don't want to drink anymore...alcohol and my dog." Pt continued to cry. Discussed how many people self-medicate with things like alcohol to alleviate other symptoms they may be having. Discussed her dog which seems to be a protective factor for her, a reason to live. Discussed how important she is to her dog and what would her dog do without her. Pt seemed to agree that her dog needs her. Pt stated that her dog is being taken care of by her friend Krystina right now. Addendum: 06/03/19 at 1256 by Terrie Barry RN (Lee) After admitting to , pt told this nurse, "don't tell anyone."
[2019-06-03] MEDS ORDERED: haloperidol 5mg tablet PO STA (15:57)
[2019-06-03] MEDS ORDERED: LORazepam 1 MG tablet PO STA (15:57)
--- NOTE | 2019-06-03 16:09 | NUR ---
Pt observed by staff responding to internal stimuli in her room around 1500. Charge nurse heard her yelling at unseen persons. Pt became agitated with nonstop yelling and swearing as well as forcefully shutting her door. Unable to be verbally de-escalated, security was called. CARLI Crisostomo was present on the unit, he ordered Haldol 5 mg PO and Ativan 2 mg PO once STAT. Pt stated "Haldol! That will kill me!" but then poured the pills in her hand and took them all.
[2019-06-03] MEDS ORDERED: diphenhydrAMINE 25mg capsule PO STA (16:33)
[2019-06-03] MEDS ORDERED: haloperidol 5mg tablet PO ONE (16:35)
[2019-06-03] MEDS ORDERED: diphenhydrAMINE 25mg capsule PO ONE ×2 (16:35→16:45)
[2019-06-03] MEDS ORDERED: haloperidol 5mg tablet ONE (16:44)
--- NOTE | 2019-06-03 16:57 | NUR ---
Pt continued to yell, pace around room, shut door despite Haldol 5 mg and Ativan 2 mg. Yelled, "I've got horrible voices in my head! Nothing is helping them, 2 Ativans?! I need 5 Ativans, that might knock my little ass out! I want out of here, I need my alcohol, I want to get out of here and drink and do crystal meth!" Notified CARLI Crisostomo that pt continued to be agitated. Her ordered another Haldol 5 mg as well as Benadryl 50 mg PO, given at 1636. Pt reluctantly took the meds, initially said 'I don't want these, I'm going to throw these across the room. That's not going to help! I need more Ativan!" "One of these days I'm going to take a blanket and bust through that window to get my alcohol! Benadryl! That's for allergies! Haldol!" Asked if alcohol helped with the voices, "Yes!" Pt did eventually take the meds. Gave prn Atarax 50 mg at 1652 as pt continued to demand more Ativan. Pt sobbing saying things like, "I'm worthless, I'm a junkie and an alcoholic, I just want to !" "You see this (pt pointed to the skin on her nose) I hope it's cancer, my family had cancer, I hope I have brain cancer, I just want to , let me , let me out of here so I can go !" Pt currently lying in bed still awake but quiet at this time.
[2019-06-03 20:00] VITALS: BP 118/62
[2019-06-03] MEDS: prazosin 1mg capsule PO SCH (21:00)
--- NOTE | 2019-06-04 01:48 | NUR ---
Nursing Progress Note: Legal hold: 5249 Client on involuntary status for DTS. Report received from nurse Jennifer RN with use of SBAR. Why are they here: Pt admitted to [facility] on 5149 for DTS. Pt is very depressed. She reported that she wants to all the time. Pt attempted to throw herself in front of a car 05/26/19. Pt stated "she stated "I can't take it anymore." Pt was trying to obtain pills to overdose and "I have been trying to drink myself to ." Pt reports "I have nothing to live for." Assessment What has happened this shift: Patient is in her room sleeping at the change of shift. She remains in her bed sleeping this evening. She is cooperative for brief a assessment where she reports being tired, and sleepy. She declines her HS medications this evening. Drinks a glass of water then lays down and falls asleep. She remains sleeping at this time, no distress noted. Will continue to monitor patient. S/I, H/I: Pt is endorsing SI, stating that she will kill herself as she leaves here. A/VH: Pt denies, no s/sx of responding to internal stimuli Sleep: Currently sleeping, see sleep assessment ADL's: Independent Group attendance: No Were Meds taken: Yes Any med S/E: None noted or reported Mental Status Exam Appearance: Unkempt Eye contact: Fair Behavior: Resistant to care, slept most of shift Speech: Pressured Mood: Fatigued, "Tired" Affect: Congruent to mood. Thought process: Suspicious, paranoid Thought Content: No taking medications this evening Cognition: A/O X 4 Insight: Poor Judgment: Poor Interventions PRN's used: Dexterrin Therapeutic interventions: 1:1 assessment, active listening, therapeutic conversation, limit setting, redirection, reality orientation, medication administration/education/monitoring, Q15 min safety checks. Restraints/seclusion/emergency medication: N/A Justification of Continued Inpatient Treatment: Pt remains a DTS with statements of intent to kill herself as soon as she is discharged, pt is an alcoholic, pt is homeless.
[2019-06-04] MEDS: nicotine 21mg patch - 24 hr TD SCH (07:45)
[2019-06-04] MEDS: gabapentin 300mg capsule PO SCH ×3 (07:45→21:01)
[2019-06-04] MEDS: lactobacillus rhamnosus 10,000 MMU CELLS/CAPSULE PO SCH ×2 (07:45→21:01)
[2019-06-04] MEDS: buPROPion SR 150mg tablet PO SCH ×2 (07:45→21:01)
[2019-06-04] MEDS: LORazepam 1 MG tablet PO PRN ×2 (07:45→18:58)
[2019-06-04 08:00] VITALS: BP 129/61
[2019-06-04] MEDS: DOXYCYCLINE 100MG CAPSULE PO SCH ×2 (08:30→18:26)
[2019-06-04] MEDS: hydrOXYzine 25 MG tablet PO PRN (15:00)
--- NOTE | 2019-06-04 18:04 | NUR ---
Nursing Progress Note: Legal hold: 5249 Client on involuntary status for DTS. Report received from nurse Johanny RN with use of SBAR. Why are they here: Pt admitted to [facility] on 515 for DTS. Pt is very depressed. She reported that she wants to all the time. Pt attempted to throw herself in front of a car 05/26/19. Pt stated "she stated "I can't take it anymore." Pt was trying to obtain pills to overdose and "I have been trying to drink myself to ." Pt reports "I have nothing to live for." Assessment What has happened this shift: Patient is observed sleeping at change of shift. She wakes to get coffee, finds out there is not any made and becomes agitated. Patient request PRN for anxiety, Ativan administered with all of patients other medications. Patient states "I wish I never told you guys that I hear voices cause now your keeping me here." RN explained that we do not hold people because they hear voices, patient is held because she reported wanting to hurt herself to which patient replied "I do, I want to ." Patient states that she slept well the night before but continues to be tired. Patient eats meals and attends some groups during the day. S/I, H/I: Pt is endorsing SI, stating that she will kill herself as she leaves here. A/VH: Pt reports AH Sleep: 10hrs NOC and rested during the day ADL's: Independent Group attendance: yes Were Meds taken: Yes Any med S/E: None noted or reported Mental Status Exam Appearance: Unkempt Eye contact: direct Behavior: angry in the morning, redirectable Speech: soft tone Mood: angry in the morning, pleasant the rest of the day Affect: Congruent to mood. Thought process: Suspicious, paranoid, anxious Thought Content: focused on wanting to leave Cognition: A/O X 4 Insight: Poor Judgment: Poor Interventions PRN's used: Ativan Therapeutic interventions: 1:1 assessment, establishment of rapport, maintained safe therapeutic milieu, provided active listening with positive feedback, provided medication education and monitored for effects, monitored for change in behavior and provided needed interventions. Q 15 minute safety checks. Restraints/seclusion/emergency medication: N/A Justification of Continued Inpatient Treatment: Pt remains a DTS with statements of intent to kill herself as soon as she is discharged, pt is an alcoholic, pt is homeless.Continued therapeutic support and medication management needed to provide stabilization, prevent decompensation, improve coping mechanisms decreasing risk to patient of re-admittance.
[2019-06-04 19:00] VITALS: BP 80/46
[2019-06-04] MEDS: prazosin 1mg capsule PO SCH (20:53)
[2019-06-04 21:00] VITALS: BP 100/60
--- NOTE | 2019-06-05 02:53 | NUR ---
Nursing Progress Note: Legal hold: 5249 Client on involuntary status for DTS. Report received from nurse Sb RN with use of SBAR. Why are they here: Pt admitted to [facility] on 5149 for DTS. Pt is very depressed. She reported that she wants to all the time. Pt attempted to throw herself in front of a car 05/26/19. Pt stated "she stated "I can't take it anymore." Pt was trying to obtain pills to overdose and "I have been trying to drink myself to ." Pt reports "I have nothing to live for." Assessment What has happened this shift: Patient is in her room at change of shift. She agrees to a 1:1 assessment. She reports feeling anxious and asks for prn Ativan. She is more pleasant this evening, talking with staff and states her day was "good", no labile mood is noted. She is up and eating with peers at snack time this evening, and then goes to bed after. She is complaint for HS medications, HS Minipress dose held due to patients BP being to low. Patient remains in bed the remainder of the evening. S/I, H/I: Pt is endorsing SI, stating that she will kill herself as she leaves here. A/VH: Pt reports AH Sleep: Currently sleeping, see sleep assessment ADL's: Independent Group attendance: Yes Were Meds taken: Yes Any med S/E: None noted or reported Mental Status Exam Appearance: Unkempt Eye contact: Direct Behavior: Calm Speech: Soft tone Mood: Calm, sleepy Affect: Congruent to mood. Thought process: Anxious Thought Content: Focused on food this evening Cognition: A/O X 4 Insight: Poor Judgment: Poor Interventions PRN's used: Ativan Therapeutic interventions: 1:1 assessment, establishment of rapport, maintained safe therapeutic milieu, provided active listening with positive feedback, provided medication education and monitored for effects, monitored for change in behavior and provided needed interventions. Q 15 minute safety checks. Restraints/seclusion/emergency medication: N/A Justification of Continued Inpatient Treatment: Pt remains a DTS with statements of intent to kill herself as soon as she is discharged, pt is an alcoholic, pt is homeless.Continued therapeutic support and medication management needed to provide stabilization, prevent decompensation, improve coping mechanisms decreasing risk to patient of re-admittance.
[2019-06-05] MEDS: LORazepam 1 MG tablet PO PRN ×3 (05:33→16:43)
[2019-06-05] MEDS: buPROPion SR 150mg tablet PO SCH ×2 (07:29→20:52)
[2019-06-05] MEDS: gabapentin 300mg capsule PO SCH ×3 (07:29→20:52)
[2019-06-05] MEDS: lactobacillus rhamnosus 10,000 MMU CELLS/CAPSULE PO SCH ×2 (07:29→20:52)
[2019-06-05] MEDS: DOXYCYCLINE 100MG CAPSULE PO SCH ×2 (07:30→16:43)
[2019-06-05] MEDS: nicotine 21mg patch - 24 hr TD SCH (07:30)
[2019-06-05 08:00] VITALS: BP 110/56
[2019-06-05] MEDS: hydrOXYzine 25 MG tablet PO PRN (15:12)
--- NOTE | 2019-06-05 16:34 | NUR ---
Nursing Progress Note: Legal hold: 5249 Client on involuntary status for DTS. Report received from nurse Ese Fitzpatrick RN with use of SBAR. Why are they here: Pt admitted to [facility] on 515 for DTS. Pt is very depressed. She reported that she wants to all the time. Pt attempted to throw herself in front of a car 05/26/19. Pt stated "she stated "I can't take it anymore." Pt was trying to obtain pills to overdose and "I have been trying to drink myself to ." Pt reports "I have nothing to live for." Assessment What has happened this shift: Patient is observed sleeping at change of shift. She wakes easily and appears to be in good spirits. She continues to be fidgety but states that she feels her anxiety is less this morning. She reports sleeping well last night. She denies A/H and denies thoughts of harming herself. She smiles and says that she realized she doesn't want to to when she thought the sore on her nose was cancer. Her demeanor is pleasant throughout the day. She attends some of the groups. She takes all her medications without issue. S/I, H/I: denies A/VH: denies Sleep: 7hrs NOC and rested during the day ADL's: Independent Group attendance: yes Were Meds taken: Yes Any med S/E: None noted or reported Mental Status Exam Appearance: clean, dressed in own clothing, styles hair Eye contact: direct Behavior: friendly and cooperative Speech: soft tone, increased rate Mood: content Affect: Congruent to mood. Thought process: linear Thought Content: wanting to live Cognition: A/O X 4 Insight: Poor Judgment: Poor Interventions PRN's used: Ativan Therapeutic interventions: 1:1 assessment, establishment of rapport, maintained safe therapeutic milieu, provided active listening with positive feedback, provided medication education and monitored for effects, monitored for change in behavior and provided needed interventions. Q 15 minute safety checks. Restraints/seclusion/emergency medication: N/A Justification of Continued Inpatient Treatment: Continued therapeutic support and medication management needed to provide stabilization, prevent decompensation, improve coping mechanisms decreasing risk to patient of re-admittance.
[2019-06-05 20:00] VITALS: BP 97/60
[2019-06-05] MEDS: prazosin 1mg capsule PO SCH (21:00)
--- NOTE | 2019-06-06 02:09 | NUR ---
Nursing Progress Note: Legal hold: 5249 Client on involuntary status for DTS. Report received from nurse Sb RN with use of SBAR. Why are they here: Pt admitted to [facility] on 5149 for DTS. Pt is very depressed. She reported that she wants to all the time. Pt attempted to throw herself in front of a car 05/26/19. Pt stated "she stated "I can't take it anymore." Pt was trying to obtain pills to overdose and "I have been trying to drink myself to ." Pt reports "I have nothing to live for." Assessment What has happened this shift: Patient is up on the unit at change of shift. She is pleasant, cooperative and her mood is bright. She denies SI and states she no longer feels suicidal and that she wants to live. Patient then spends the rest of her evening in her room, gets ready for bed, and falls asleep early this evening. She is easily awoken for HS medications, takes them and returns to sleep. Prazosin held for low BP. S/I, H/I: Denies A/VH: Denies Sleep: Currently sleeping, see sleep assessment ADL's: Independent Group attendance: Yes Were Meds taken: Yes Any med S/E: None noted or reported Mental Status Exam Appearance: Clean, dressed in own clothing, well groomed Eye contact: Direct Behavior: Friendly and cooperative Speech: Soft tone, increased rate Mood: Content Affect: Congruent to mood. Thought process: Linear Thought Content: Wanting to live Cognition: A/O X 4 Insight: Poor Judgment: Poor Interventions PRN's used: None Therapeutic interventions: 1:1 assessment, establishment of rapport, maintained safe therapeutic milieu, provided active listening with positive feedback, provided medication education and monitored for effects, monitored for change in behavior and provided needed interventions. Q 15 minute safety checks. Restraints/seclusion/emergency medication: N/A Justification of Continued Inpatient Treatment: Continued therapeutic support and medication management needed to provide stabilization, prevent decompensation, improve coping mechanisms decreasing risk to patient of re-admittance.
[2019-06-06] MEDS: LORazepam 1 MG tablet PO PRN ×3 (03:00→14:22)
[2019-06-06] MEDS: hydrOXYzine 25 MG tablet PO PRN ×3 (06:32→20:30)
[2019-06-06] MEDS: lactobacillus rhamnosus 10,000 MMU CELLS/CAPSULE PO SCH ×2 (07:54→20:31)
[2019-06-06] MEDS: DOXYCYCLINE 100MG CAPSULE PO SCH (07:54)
[2019-06-06] MEDS: buPROPion SR 150mg tablet PO SCH ×2 (07:54→20:31)
[2019-06-06] MEDS: gabapentin 300mg capsule PO SCH ×3 (07:54→20:30)
[2019-06-06] MEDS: nicotine 21mg patch - 24 hr TD SCH (07:57)
[2019-06-06 08:24] VITALS: BP 110/77
--- NOTE | 2019-06-06 16:59 | NUR ---
Nursing Progress Note: Legal hold: 5249 Client on involuntary status for DTS. Report received from nurse Ese Fitzpatrick RN with use of SBAR. Why are they here: Pt admitted to [facility] on 5149 for DTS. Pt is very depressed. She reported that she wants to all the time. Pt attempted to throw herself in front of a car 05/26/19. Pt stated "she stated "I can't take it anymore." Pt was trying to obtain pills to overdose and "I have been trying to drink myself to ." Pt reports "I have nothing to live for." Assessment What has happened this shift: Patient is up and pacing the halls at shift change. She states that she did not sleep well last night and has been very anxious. Patient, at times during the day, becomes tearful and anxious. She states she is worried about leaving the unit and how her life will be. She spends the day developing back up plans. Patient contacted [facility] in [place] as plan B. She is mildly agitated with peer on unit but is re-directable. She is cooperative throughout the day and takes all of her medications. She continues to report that she wants to live and wants to be sober. She set up an AA meeting with her sponsor on the unit for Saturday S/I, H/I: denies A/VH: denies Sleep: 6.75hrs NOC and rested during the day ADL's: Independent Group attendance: yes Were Meds taken: Yes Any med S/E: None noted or reported Mental Status Exam Appearance: clean, changes clothing often Eye contact: direct Behavior: friendly and cooperative Speech: soft tone, increased rate Mood: content Affect: Congruent to mood. Thought process: linear Thought Content: wanting to live Cognition: A/O X 4 Insight: Poor Judgment: Poor Interventions PRN's used: Ativan xs 2, atarax Therapeutic interventions: 1:1 assessment, establishment of rapport, maintained safe therapeutic milieu, provided active listening with positive feedback, provided medication education and monitored for effects, monitored for change in behavior and provided needed interventions. Q 15 minute safety checks. Restraints/seclusion/emergency medication: N/A Justification of Continued Inpatient Treatment: Continued therapeutic support and medication management needed to provide stabilization, prevent decompensation, improve coping mechanisms decreasing risk to patient of re-admittance.
[2019-06-06 19:19] VITALS: BP 124/73
[2019-06-06] MEDS: traZODone 50mg tablet PO PRN (20:30)
[2019-06-06] MEDS: prazosin 1mg capsule PO SCH (20:31)
--- NOTE | 2019-06-07 01:08 | NUR ---
Nursing Progress Note: Legal hold: 5249 Client on involuntary status for DTS. Report received from AKHIL Basurto with use of SBAR. Why are they here: Pt admitted to [facility] on 515 for DTS. Pt is very depressed. She reported that she wants to all the time. Pt attempted to throw herself in front of a car 05/26/19. Pt stated "she stated "I can't take it anymore." Pt was trying to obtain pills to overdose and "I have been trying to drink myself to ." Pt reports "I have nothing to live for." Assessment What has happened this shift: Patient paces hallway following shift change. She then settled in the group room. Patient initially presents as linear. She does complain of anxiety. She denies S/I or H/I. She denies voices or other hallucinations. The patient suddenly becomes labile during interview, she turns and yells at another patient who is sitting quietly about ten feet away. She threatens patient with violence for listening in on her conversation. The patient keeps looking around as if paranoid. The patient is redirected back to this technical document writer. She is told that outbursts at other patients are not allowed. The patient was also told that the other patient was not listening in to our conversation, she is just sitting nearby. The patient then begins rambling about different women and robberies. Patient is redirected again. The patient then states that she wants to go to rehab in [place] or get the hell out of here. The patient is advised that she is in a safe place. Follow evening medications the patient lays in her bed talking to someone not there, laughing inappropriately, she gradually falls asleep. S/I, H/I: Patient denies. A/VH: Patient denies. Sleep: Will tally in am. ADL's: Independent Group attendance: Yes, on day shift. Were Meds taken: Yes, patient is medication compliant. Any med S/E: None noted or reported Mental Status Exam Appearance: Clean. Eye contact: Direct Behavior: Bizarre. Speech: Soft tone, increased rate to loud tone and screaming. Mood: Labile at times. Affect: Flat. Thought process: Linear to bizarre. Thought Content: Paranoid. Cognition: Oriented to person, place, and time. Insight: Poor Judgment: Poor Interventions PRN's used: Atarax. Therapeutic interventions: 1:1 assessment, establishment of rapport, maintained safe therapeutic milieu, provided active listening with positive feedback, provided medication education and monitored for effects, monitored for change in behavior and provided needed interventions. Q 15 minute safety checks. Restraints/seclusion/emergency medication: N/A Justification of Continued Inpatient Treatment: Continued therapeutic support and medication management needed to provide stabilization, prevent decompensation, improve coping mechanisms decreasing risk to patient of re-admittance.
[2019-06-07] MEDS: LORazepam 1 MG tablet PO PRN ×3 (07:11→22:40)
[2019-06-07] MEDS: lactobacillus rhamnosus 10,000 MMU CELLS/CAPSULE PO SCH ×2 (07:11→20:04)
[2019-06-07] MEDS: gabapentin 300mg capsule PO SCH ×3 (07:11→20:05)
[2019-06-07] MEDS: nicotine 21mg patch - 24 hr TD SCH (07:11)
[2019-06-07] MEDS: buPROPion SR 150mg tablet PO SCH ×2 (07:11→20:05)
[2019-06-07 08:04] VITALS: BP 113/68
[2019-06-07] MEDS: hydrOXYzine 25 MG tablet PO PRN (12:55)
--- NOTE | 2019-06-07 15:44 | NUR ---
Nursing Progress Note: Legal hold: 5249 Client on involuntary status for DTS. Report received from nurse Tunde RN with use of SBAR. Why are they here: Pt admitted to [facility] on 515 for DTS. Pt is very depressed. She reported that she wants to all the time. Pt attempted to throw herself in front of a car 05/26/19. Pt stated "she stated "I can't take it anymore." Pt was trying to obtain pills to overdose and "I have been trying to drink myself to ." Pt reports "I have nothing to live for." Assessment What has happened this shift: Pt up in the RR at shift change. She is requesting "something to calm me down." Patient given Ativan and Atarax this shift. She continues to express her desire to go to a "Drug and Alcohol Program." She describes her anxiety "due to being an addict." She also shard she has a history of heroin use. S/I, H/I: denies A/VH: denies Sleep: c/o she does not sleep well at night because "I am afraid." ADL's: Independent Group attendance: yes Were Meds taken: Yes Any med S/E: None noted or reported Mental Status Exam Appearance: clean, changes clothing multiple times throughout the day Eye contact: direct Behavior: friendly and cooperative Speech: soft tone, increased rate Mood: labile Affect: Congruent to mood. Thought process: delusional Thought Content: desires rehab Cognition: A/O X 4 Insight: Poor Judgment: Poor Interventions PRN's used: Ativan x2, Atarax Therapeutic interventions: 1:1 assessment, establishment of rapport, maintained safe therapeutic milieu, provided active listening with positive feedback, provided medication education and monitored for effects, monitored for change in behavior and provided needed interventions. Q 15 minute safety checks. Restraints/seclusion/emergency medication: N/A Justification of Continued Inpatient Treatment: Continued therapeutic support and medication management needed to provide stabilization, prevent decompensation, improve coping mechanisms decreasing risk to patient of re-admittance.
[2019-06-07 19:57] VITALS: BP 106/70
[2019-06-07] MEDS: cloNIDine 0.1 mg tablet PO SCH (20:04)
[2019-06-07] MEDS: prazosin 1mg capsule PO SCH (20:05)
--- NOTE | 2019-06-07 22:50 | NUR ---
Nursing Progress Note: Legal hold: 5249 Client on involuntary status for DTS. Report received from nurse Sb RN with use of SBAR. Why are they here: Pt admitted to [facility] on 5149 for DTS. Pt is very depressed. She reported that she wants to all the time. Pt attempted to throw herself in front of a car 05/26/19. Pt stated "she stated "I can't take it anymore." Pt was trying to obtain pills to overdose and "I have been trying to drink myself to ." Pt reports "I have nothing to live for." Assessment What has happened this shift: Pt up in the flores at shift change. She is requesting Medication for anxiety while she is laughing and stating that she needs a stronger dose and every couple of hours. She then stated that the provider told her she could have two Ativan at a time. then she states its due to my addiction. S/I, H/I: denies A/VH: denies Sleep: c/o she does not sleep well at night because "I am afraid." ADL's: Independent Group attendance: yes Were Meds taken: Yes Any med S/E: None noted or reported Mental Status Exam Appearance: clean, changes clothing multiple times throughout the day Eye contact: direct Behavior: friendly and cooperative Speech: soft tone, increased rate Mood: labile Affect: Congruent to mood. Thought process: delusional Thought Content: desires rehab Cognition: A/O X 4 Insight: Poor Judgment: Poor Interventions PRN's used: Ativan Therapeutic interventions: 1:1 assessment, establishment of rapport, maintained safe therapeutic milieu, provided active listening with positive feedback, provided medication education and monitored for effects, monitored for change in behavior and provided needed interventions. Q 15 minute safety checks. Restraints/seclusion/emergency medication: N/A Justification of Continued Inpatient Treatment: Continued therapeutic support and medication management needed to provide stabilization, prevent decompensation, improve coping mechanisms decreasing risk to patient of re-admittance.
[2019-06-08] MEDS: traZODone 50mg tablet PO PRN (00:40)
[2019-06-08] MEDS: hydrOXYzine 25 MG tablet PO PRN ×3 (00:40→17:45)
[2019-06-08] MEDS: cloNIDine 0.1 mg tablet PO SCH ×2 (07:27→20:21)
[2019-06-08] MEDS: lactobacillus rhamnosus 10,000 MMU CELLS/CAPSULE PO SCH ×2 (07:27→20:21)
[2019-06-08] MEDS: buPROPion SR 150mg tablet PO SCH ×2 (07:28→20:21)
[2019-06-08] MEDS: gabapentin 300mg capsule PO SCH ×3 (07:28→20:22)
[2019-06-08] MEDS: nicotine 21mg patch - 24 hr TD SCH (07:31)
[2019-06-08 08:00] VITALS: BP 97/64
[2019-06-08] MEDS: LORazepam 1 MG tablet PO PRN (10:53)
--- NOTE | 2019-06-08 16:00 | NUR ---
Transportation Consultant 1:1 The undersigned clinician met individually with pt. to make a phone call and reach out to her outpatient therapist Bhavna Ranjeet [facility] [phone]. Pt. reports her most recent session was toward the end of April and had reached out earlier last week on her own and had not yet heard back. Pt. has signed ERICA and left message with call back number for Ms. Pollack. Plan= continue to support pt. and collaborate with treatment team. Mari Lomas WINE STEWARD
--- NOTE | 2019-06-08 16:37 | NUR ---
Social Work/ Discharge planning The undersigned clinician sat in with Pt. for [facility] interview. Evan from [facility] informed both pt and myself that he would be accepting pt to [facility] and would be in contact to let us know when a bed is available. Mari Lomas LMFT
--- NOTE | 2019-06-08 17:24 | NUR ---
Nursing Progress Note: Legal hold: 5249 Client on involuntary status for DTS. Report received from nurse AKHIL Larson with use of SBAR. Why are they here: Pt admitted to [facility] on 5149 for DTS. Pt is very depressed. She reported that she wants to all the time. Pt attempted to throw herself in front of a car 05/26/19. Pt stated "she stated "I can't take it anymore." Pt was trying to obtain pills to overdose and "I have been trying to drink myself to ." Pt reports "I have nothing to live for." Assessment What has happened this shift: Pt awake dressed nicely pacing the halls at start of shift. She request something to calm her down more than once throughout the day. Patient given Atrax as ordered prior to the Ativan which was upsetting to her. Pt yelled for a while then went to sleep.Later on pt was responsive to the medication education regarding the Atarax and Ativan. Pt interviewed by [facility] and accepted pending a bed opening. S/I, H/I: denies A/VH: denies Sleep: N/A ADL's: Independent Group attendance: yes Were Meds taken: Yes Any med S/E: None noted or reported Mental Status Exam Appearance: clean, changes clothing multiple times throughout the day and hairstyles Eye contact: direct Behavior: friendly and cooperative Speech: soft tone, increased rate Mood: labile Affect: Congruent to mood. Thought process: delusional Thought Content: desires rehab Cognition: A/O X 4 Insight: Poor Judgment: Poor Interventions PRN's used: Ativan x2, Atarax Therapeutic interventions: 1:1 assessment, establishment of rapport, maintained safe therapeutic milieu, provided active listening with positive feedback, provided medication education and monitored for effects, monitored for change in behavior and provided needed interventions. Q 15 minute safety checks. Restraints/seclusion/emergency medication: N/A Justification of Continued Inpatient Treatment: Continued therapeutic support and medication management needed to provide stabilization, prevent decompensation, improve coping mechanisms decreasing risk to patient of re-admittance.
[2019-06-08 20:00] VITALS: BP 99/56
[2019-06-08] MEDS: prazosin 1mg capsule PO SCH (20:21)
--- NOTE | 2019-06-08 21:48 | NUR ---
Nursing Progress Note: Legal hold: 5249 Client on involuntary status for DTS. Report received from nurse Sb RN with use of SBAR. Why are they here: Pt admitted to [facility] on 5149 for DTS. Pt is very depressed. She reported that she wants to all the time. Pt attempted to throw herself in front of a car 05/26/19. Pt stated "she stated "I can't take it anymore." Pt was trying to obtain pills to overdose and "I have been trying to drink myself to ." Pt reports "I have nothing to live for." Assessment What has happened this shift: Pt awake dressed nicely pacing the halls at start of shift. She request her night medication right way. She ate snack in group room with her peers then went to bed. Pt interviewed by [facility] and accepted pending a bed opening. S/I, H/I: denies A/VH: denies Sleep: N/A ADL's: Independent Group attendance: yes Were Meds taken: Yes Any med S/E: None noted or reported Mental Status Exam Appearance: clean, changes clothing multiple times throughout the day and hairstyles Eye contact: direct Behavior: friendly and cooperative Speech: soft tone, increased rate Mood: labile Affect: Congruent to mood. Thought process: delusional Thought Content: desires rehab Cognition: A/O X 4 Insight: Poor Judgment: Poor Interventions PRN's used: Ativan x2, Atarax Therapeutic interventions: 1:1 assessment, establishment of rapport, maintained safe therapeutic milieu, provided active listening with positive feedback, provided medication education and monitored for effects, monitored for change in behavior and provided needed interventions. Q 15 minute safety checks. Restraints/seclusion/emergency medication: N/A Justification of Continued Inpatient Treatment: Continued therapeutic support and medication management needed to provide stabilization, prevent decompensation, improve coping mechanisms decreasing risk to patient of re-admittance.
[2019-06-09] MEDS: LORazepam 1 MG tablet PO PRN ×3 (00:07→13:46)
[2019-06-09] MEDS: traZODone 50mg tablet PO PRN (00:07)
[2019-06-09] MEDS: nicotine 21mg patch - 24 hr TD SCH (07:26)
[2019-06-09] MEDS: cloNIDine 0.1 mg tablet PO SCH (07:27)
[2019-06-09] MEDS: gabapentin 300mg capsule PO SCH (07:27)
[2019-06-09] MEDS: buPROPion SR 150mg tablet PO SCH ×2 (07:27→13:27)
[2019-06-09] MEDS: lactobacillus rhamnosus 10,000 MMU CELLS/CAPSULE PO SCH ×2 (07:27→21:02)
[2019-06-09 08:01] VITALS: BP 106/67
--- NOTE | 2019-06-09 15:04 | NUR ---
Reassessment: PO intake fluctuates occasionally with 50% PO intake however overall 75-100% meeting nutrient needs. [facility] 06/08. Will continue to follow. Recommend: 1. continue regular diet 2. bowel care as needed 3. weekly weights 4. encourage PO intake Addendum: 06/09/19 at [address] Amended: Links added.
--- NOTE | 2019-06-09 16:37 | NUR ---
Nursing Progress Note: Legal hold: 5249 Client on involuntary status for DTS. Report received from nurse Johanny RN with use of SBAR. Why are they here: Pt admitted to [facility] on 515 for DTS. Pt is very depressed. She reported that she wants to all the time. Pt attempted to throw herself in front of a car 05/26/19. Pt stated "she stated "I can't take it anymore." Pt was trying to obtain pills to overdose and "I have been trying to drink myself to ." Pt reports "I have nothing to live for." Assessment What has happened this shift: Patient is up walking the unit at shift change. She is pleasant but reports that she needs her nicotine patch removed. She states that she is feeling anxious about discharging to the [facility]. She reports that she is excited about the plans but nervous about her ability to stay sober. Patient takes her medications without issue, RN administered Atarax for anxiety. Patient states that the atarax is not helpful and would like Ativan, RN administered. Patient has a difficult time when one of unit peers is upset. Patient becomes tearful and expresses sympathy. At the end of the day patient continues to have anxiety related to discharge and expresses it as if she is angry. She is able to calm herself. 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 S/I, H/I: denies A/VH: denies Sleep:8.25hrs NOC and rested during the day ADL's: Independent Group attendance: yes Were Meds taken: Yes Any med S/E: None noted or reported Mental Status Exam Appearance: clean, changes clothing and hairstyles multiple times throughout the day Eye contact: direct Behavior: friendly and cooperative mostly, anxious and agitated at times Speech: soft tone, increased rate, mumbly Mood: anxious Affect: Congruent to mood. Thought process: disorganized. Thought Content: staying sober after discharge from unit Cognition: A/O X 4 Insight: Poor to fair Judgment: Poor to fair Interventions PRN's used: Ativan, Atarax Therapeutic interventions: 1:1 assessment, establishment of rapport, maintained safe therapeutic milieu, provided active listening with positive feedback, provided medication education and monitored for effects, monitored for change in behavior and provided needed interventions. Q 15 minute safety checks. Restraints/seclusion/emergency medication: N/A Justification of Continued Inpatient Treatment: Continued therapeutic support and medication management needed to provide stabilization, prevent decompensation, improve coping mechanisms decreasing risk to patient of re-admittance.
[2019-06-09] MEDS: QUEtiapine 25mg tablet PO SCH (17:13)
[2019-06-09 20:56] VITALS: BP 91/58
[2019-06-09] MEDS ORDERED: QUEtiapine 25mg tablet PO SCH (21:00)
[2019-06-09] MEDS: QUEtiapine 25mg tablet PO PRN (21:03)
--- NOTE | 2019-06-10 01:43 | NUR ---
Nursing Progress Note: Legal hold: 5249 Client on involuntary status for DTS. Report received from nurse Andrew RN with use of SBAR. Why are they here: Pt admitted to [facility] on 515 for DTS. Pt is very depressed. She reported that she wants to all the time. Pt attempted to throw herself in front of a car 05/26/19. Pt stated "she stated "I can't take it anymore." Pt was trying to obtain pills to overdose and "I have been trying to drink myself to ." Pt reports "I have nothing to live for." Assessment What has happened this shift: The patient was in her room at shift change. She was seen at her bedside for 1:1. She gets angry with questions and shut down. The patient stayed isolated to her room, and was later approached with her HS medication. She right away insisted they were not correct. "The doctor said he changed my Seroquel to 600mg, I take Buspar at night." The patient was not easily convinced that she only takes 100mg Seroquel at HS, and she takes Buspar in the day. The patient took her medication, but never agreed that she was mistaken. She went to bed right after. S/I, H/I: Denies A/VH: Denies Sleep: See sleep hours ADL's: Independent Group attendance: No groups at night. Were Meds taken: Yes Any med S/E: None noted or reported Mental Status Exam Appearance: Clean, changes clothing multiple times throughout the day and hairstyles Eye contact: Fair Behavior: Isolative, irritated, angry Speech: soft tone, increased rate Mood: Labile Affect: Congruent to mood. Thought process: delusional Thought Content: Wants to go to [facility]. Cognition: A/O X 4 Insight: Poor Judgment: Poor Interventions PRN's used: Ativan, Seroquel 100mg Therapeutic interventions: 1:1 assessment, establishment of rapport, maintained safe therapeutic milieu, provided active listening with positive feedback, provided medication education and monitored for effects, monitored for change in behavior and provided needed interventions. Q 15 minute safety checks. Restraints/seclusion/emergency medication: N/A Justification of Continued Inpatient Treatment: Continued therapeutic support and medication management needed to provide stabilization, prevent decompensation, improve coping mechanisms decreasing risk to patient of re-admittance.
[2019-06-10] MEDS: QUEtiapine 25mg tablet PO PRN (01:54)
[2019-06-10] MEDS: nicotine 21mg patch - 24 hr TD SCH (07:14)
[2019-06-10] MEDS: buPROPion SR 150mg tablet PO SCH ×2 (07:15→13:00)
[2019-06-10] MEDS: QUEtiapine 25mg tablet PO SCH (07:15)
[2019-06-10] MEDS: lactobacillus rhamnosus 10,000 MMU CELLS/CAPSULE PO SCH (07:15)
[2019-06-10 07:18] VITALS: BP 116/72
[2019-06-10] MEDS: LORazepam 1 MG tablet PO PRN (08:21)
[2019-06-10] MEDS ORDERED: QUET300T2 PO (11:14)
[2019-06-10] MEDS ORDERED: NICO-668 BC (11:14)
[2019-06-10] MEDS ORDERED: QUET25TA34 PO (11:14)
[2019-06-10] MEDS ORDERED: ATI1T PO (11:14)
[2019-06-10] MEDS ORDERED: NICO-687 TD (11:14)
[2019-06-10] MEDS ORDERED: DIPH50CA3 PO (11:27)
--- NOTE | 2019-06-10 12:23 | NUR ---
Nursing Progress Note: Latesha Legal hold: 5250 Client on involuntary status for DTS. Report received from nurse Johanny RAYMUNDO Why are they here: Pt admitted to [facility] on 5150 for DTS. Pt is very depressed. She reported that she wants to all the time. Pt attempted to throw herself in front of a car 05/26/19. Pt stated "she stated "I can't take it anymore." Pt was trying to obtain pills to overdose and "I have been trying to drink myself to ." Pt reports "I have nothing to live for." Assessment What has happened this shift: Client was in bed to begin this shift. Patient was visible on unit shortly after shift change. Client is labile and states, "I need to talk to the [facility] Doctor, my meds are wrong". Client has been oppositional this am in regards to medications. Client was given Ativan per Doctor order for anxiety at 0815 with good effect obtained. Client returned to her room after PRN medication and is resting in her bed. No s/s of distress or problems noted. S/I, H/I: Denies A/VH: Denies Sleep: See sleep hours ADL's: Independent Group attendance: Were Meds taken: Yes Any med S/E: None noted or reported Mental Status Exam Appearance: Clean, changes clothing multiple times throughout the day and hairstyles Eye contact: Fair Behavior: Isolative, irritated, angry Speech: soft tone, increased rate Mood: Labile Affect: Congruent to mood. Thought process: delusional Thought Content: Wants to go to [facility]. Cognition: A/O X 4 Insight: Poor Judgment: Poor Interventions PRN's used: Ativan, Therapeutic interventions: 1:1 assessment, establishment of rapport, maintained safe therapeutic milieu, provided active listening with positive feedback, provided medication education and monitored for effects, monitored for change in behavior and provided needed interventions. Q 15 minute safety checks. Restraints/seclusion/emergency medication: N/A Justification of Continued Inpatient Treatment: Continued therapeutic support and medication management needed to provide stabilization, prevent decompensation, improve coping mechanisms decreasing risk to patient of re-admittance.
--- NOTE | 2019-06-10 14:13 | NUR ---
Discharge note: Latesha Client to discharge today to [facility]. She understands conditions of discharge and contracts for safe discharge behaviors. All belongings were inventoried and returned to client satisfaction. Client condition has improved since admission and she is future and goal oriented. All needed signatures obtained from client. Medications were filled and given to client upon discharge. Client is alert and oriented x 4 and her vital signs are stable. Client will utilize resources in the event she needs to mobilize support for herself. She has phone list for area contacts. Client was given all her recently filled medications prior to departing the unit. Client was discharged at 1410 hours in the replaced by [facility] destined for [facility].
== END 2019-06-10 14:10 | disposition short-term general hospital (02) | DRG 885 ==
LOC: ADULT MH 23:21 → UNDOADMIN 23:21 → ADULT MH 06-07 06:54
PROVIDERS: ADMIT Psychiatry & Neurology Psychiatry; ATTEND Psychiatry & Neurology Psychiatry
DX: F33.2 Major depressive disorder, recurrent severe without psychotic features (principal); R45.851 Suicidal ideations; F29 Unspecified psychosis not due to a substance or known physiological condition; F10.10 Alcohol abuse, uncomplicated; F43.12 Post-traumatic stress disorder, chronic; F60.81 Narcissistic personality disorder; F17.210 Nicotine dependence, cigarettes, uncomplicated; R12 Heartburn; F20.9 Schizophrenia, unspecified; Z88.0 Allergy status to penicillin; Z88.6 Allergy status to analgesic agent
CPT/HCPCS: 36415; 80053; 80061; 80305; 80329; 81001; 83036; 84443; 85025; 87070; 87077; 87081; 87186; Q0163; Z7610

== ENCOUNTER 2019-06-14 11:30 | Emergency (ER) | payer MEDICARE, MEDICAID ==
[~2019-06-14] VITALS: Ht 162.6 cm; Wt 50.0 kg
[~2019-06-14 11:30] MED LIST changes: +ATI1T PO; +DIPH50CA3 PO; -DOXY100C43 PO; -IBUP-24 PO; +NICO-668 BC; +NICO-687 TD; +QUET25TA34 PO; +QUET300T2 PO; -REM15T PO
--- NOTE | 2019-06-14 12:30 | NUR ---
Patient crying and repeating "I should have stayed". Patient states she wants to take pills or jump in front of traffic. Patient was discharged from [facility] last night for not meeting curfew. Patient stated she did heroin and meth last night and feeling suicidal. Continue to monitor.
[2019-06-14] MEDS ORDERED: NICO-669 BC (12:35)
[2019-06-14] MEDS ORDERED: DIPH50CA36 PO (12:35)
[2019-06-14] MEDS ORDERED: QUET-1 PO (12:35)
[2019-06-14] MEDS ORDERED: LORA-269 PO (12:35)
[2019-06-14] MEDS ORDERED: QUET25TA PO (12:35)
[2019-06-14] MEDS ORDERED: NICO-687 TOP (12:35)
[2019-06-14 12:39] LABS: BASOPHILS % (AUTO) 0.5 % (0-1); EOSINOPHILS # (AUTO) 0.1 X10'3 (0-0.9); EOSINOPHILS % (AUTO) 2.3 % (0-6); HEMATOCRIT 42.6 % (35.0-45.0); HEMOGLOBIN 14.7 g/dl (12.0-16.0); LYMPHOCYTES # (AUTO) 2.1 X10'3 (1.1-4.8); LYMPHOCYTES % (AUTO) 34.2 % (21-51); MEAN CORPUSCULAR HEMOGLOBIN 32.2 PG (27.0-31.0); MEAN CORPUSCULAR HGB CONC 34.6 g/dL (33.0-36.5); MEAN CORPUSCULAR VOLUME 93.1 FL (78-98); MEAN PLATELET VOLUME 6.8 FL (7.4-10.4); MONOCYTES # (AUTO) 0.7 X10'3 (0-0.9); MONOCYTES % (AUTO) 12.4 % (2-12); NEUTROPHILS # (AUTO) 3.1 X10'3 (1.8-7.7); NEUTROPHILS % (AUTO) 50.6 % (42-75); PLATELET COUNT 259 X10'3 (140-440); RED BLOOD COUNT 4.57 X10'6 (4.20-5.60); RED CELL DISTRIBUTION WIDTH 12.8 % (11.5-14.5)
[2019-06-14 12:50] LABS: ALANINE AMINOTRANSFERASE 34 U/L (12-78); ALBUMIN 3.9 G/DL (3.4-5.0); ALKALINE PHOSPHATASE 89 IU/L (46-116); ANION GAP 11 (8-16); ASPARTATE AMINO TRANSFERASE 22 U/L (10-37); BILIRUBIN,TOTAL 0.6 MG/DL (0.1-1.0); BLOOD UREA NITROGEN 24 MG/DL (7-18); BUN/CREATININE RATIO 28.2 (6.6-38.0); CALCIUM 9.3 MG/DL (8.5-10.1); CHLORIDE 106 MMOL/L (99-107); CREATININE 0.85 MG/DL (0.40-0.90); ETHANOL < 0.010 GM/DL (0.0-0.010); GLUCOSE 93 MG/DL (70-104); POTASSIUM 3.6 MMOL/L (3.5-5.1); SODIUM 143 MMOL/L (135-145); TOTAL CARBON DIOXIDE 26.5 MMOL/L (24-32); eGFR 68 ML/MIN
[2019-06-14] MEDS ORDERED: diphenhydrAMINE 25mg capsule PO PRN (13:10)
[2019-06-14] MEDS ORDERED: NICOTINE POLACRILEX 2 MG LOZENGE BC PRN (13:10)
--- NOTE | 2019-06-14 13:11 | NUR ---
Patient sitting up eating lunch. No distress observed. Continue to monitor.
--- NOTE | 2019-06-14 15:10 | NUR ---
Patient ambulatory to BR, steady gait to give urine sample. Continue to monitor.
--- NOTE | 2019-06-14 15:23 | NUR ---
breaking primary RN, pt is requesting nicotine patch, will request new timming and give lozenge, agitation present, states if she is let out on to the streets she will harm herself, she is mummbling to herself
[2019-06-14] MEDS: nicotine 21mg patch - 24 hr TD SCH (15:35)
[2019-06-14] MEDS: LORazepam 1 MG tablet PO PRN (15:35)
[2019-06-14 15:47] LABS: URINE HCG NEGATIVE (NEG)
[2019-06-14 16:07] LABS: CLARITY,URINE SLIGHTLY CLOUDY (Clear); COLOR,URINE YELLOW (Yellow); GLUCOSE, URINE NEGATIVE (Neg); KETONES,URINE NEGATIVE (Neg); LEUKOCYTE ESTERASE ,URINE NEGATIVE (Neg); NITRITES, URINE NEGATIVE (Neg); OCCULT BLOOD,URINE TRACE-INTACT (Neg); PH,URINE 5.5 (4.8-8.0); PROTEIN,URINE NEGATIVE (Neg); URINE AMPHETAMINE SCREEN POSITIVE (Neg); URINE BARBITUATE SCREEN NEGATIVE (Neg); URINE BENZODIAZEPINES SCREEN NEGATIVE (Neg); URINE CANNABINOID SCREEN POSITIVE (Neg); URINE COCAINE SCREEN NEGATIVE (Neg); URINE METHADONE SCREEN NEGATIVE (Neg); URINE OPIATE SCREEN NEGATIVE (Neg); URINE PHENCYCLIDINE SCREEN NEGATIVE (Neg); UROBILINOGEN,URINE 0.2 E.U/dL (0.2-1.0)
[2019-06-14 16:08] LABS: UA COLLECTION TYPE CLN CATCH MIDSTREAM
[2019-06-14 16:16] LABS: MUCUS STRANDS FEW /LPF (Neg); SQUAMOUS EPITHELIAL CELL,UR FEW /LPF (FEW)
[2019-06-14 16:18] LABS: BACTERIA,URINE FEW /HPF (Neg); TRANSITIONAL EPI CELLS,URINE FEW /HPF; WBC,URINE 0-4 /HPF (0-4)
[2019-06-14 16:19] LABS: RBC,URINE 0-2 /HPF (0-2)
--- NOTE | 2019-06-14 16:41 | NUR ---
FAXED PT PACKET TO [facility] OFFICE, CONFIRMED RECIEVAL.
--- NOTE | 2019-06-14 16:50 | NUR ---
Patient sleeping on right side. No distress observed. Continue to monitor.
--- NOTE | 2019-06-14 17:41 | NUR ---
Patient reclining in bed. No distress observed. Continue to monitor.
--- NOTE | 2019-06-14 18:40 | NUR ---
Patient is awake and well oriented. She is sitting in bed eating her dinner. Patient tells this typewriter operator automatic that she is suicidal, the plan is "to jump in front of a truck." Patient missed her curfew at the [facility], went out and meth before bringing herself here. Patients speech is rapid, soft, and regular. Patient denies H/I, or hallucinations. She is cooperative with staff at this time. Patients bed in view from nursing station.
[2019-06-14] MEDS ORDERED: quetiapine 100mg tablet PO SCH (21:00)
[2019-06-14] MEDS: QUEtiapine 25mg tablet PO SCH (21:24)
--- NOTE | 2019-06-14 22:20 | NUR ---
Patient is sleeping quietly. In view from nursing station. Patient is medication compliant.
[2019-06-15 05:30] VITALS: BP 120/79
--- NOTE | 2019-06-15 05:45 | NUR ---
Patient slept well during the night following her 2100 hour medications.
--- NOTE | 2019-06-15 06:47 | NUR ---
Patient sleeping soundly on left side. No distress observed. Continue to monitor.
--- NOTE | 2019-06-15 08:15 | NUR ---
Patient sitting up and eating breakfast. No distress observed. Continue to monitor.
[2019-06-15] MEDS: QUEtiapine 25mg tablet PO SCH ×2 (08:43→13:43)
[2019-06-15] MEDS: nicotine 21mg patch - 24 hr TD SCH (08:45)
[2019-06-15] MEDS: LORazepam 1 MG tablet PO PRN ×2 (08:48→13:43)
--- NOTE | 2019-06-15 09:50 | NUR ---
Patient sleeping on right side. No distress observed. Continue to monitor.
--- NOTE | 2019-06-15 11:40 | NUR ---
Patient sitting up in bed. No distress observed. Continue to monitor.
--- NOTE | 2019-06-15 13:10 | NUR ---
Patient eating lunch. No distress observed. Continue to monitor.
--- NOTE | 2019-06-15 14:15 | NUR ---
RN got patient a jacket, scarf and candaceie. Patient was very appreciative.
== END 2019-06-15 14:20 ==
LOC: ER 11:30
DX: R45.851 Suicidal ideations (principal); F32.9 Major depressive disorder, single episode, unspecified; F20.9 Schizophrenia, unspecified; F12.90 Cannabis use, unspecified, uncomplicated; F15.10 Other stimulant abuse, uncomplicated; Z88.0 Allergy status to penicillin; Z88.6 Allergy status to analgesic agent; Z79.899 Other long term (current) drug therapy; Z90.49 Acquired absence of other specified parts of digestive tract; Z60.2 Problems related to living alone
CPT/HCPCS: 36415; 80053; 80305; 80320; 81001; 81025; 85025; 87088; 99284

== ENCOUNTER 2019-06-21 12:10 | Emergency (ER) | payer MEDICARE, MEDICAID ==
[~2019-06-21] VITALS: Ht 162.6 cm; Wt 60.0 kg
[~2019-06-21 12:10] MED LIST changes: -ATI1T PO; -DIPH50CA3 PO; +DIPH50CA36 PO; +LORA-269 PO; -NICO-668 BC; +NICO-669 BC; -NICO-687 TD; +NICO-687 TOP; +QUET-1 PO; +QUET25TA PO; -QUET25TA34 PO; -QUET300T2 PO
[2019-06-21 12:32] VITALS: BP 118/100
[2019-06-21] MEDS ORDERED: QUET25TA PO (13:28)
== END 2019-06-21 13:37 | disposition home or self-care (01) ==
LOC: ER 12:30
DX: F41.9 Anxiety disorder, unspecified (principal); F32.9 Major depressive disorder, single episode, unspecified; R45.851 Suicidal ideations; F20.9 Schizophrenia, unspecified; F12.90 Cannabis use, unspecified, uncomplicated; Z76.0 Encounter for issue of repeat prescription; Z88.0 Allergy status to penicillin; Z88.6 Allergy status to analgesic agent; Z79.899 Other long term (current) drug therapy; Z90.49 Acquired absence of other specified parts of digestive tract; Z60.2 Problems related to living alone
CPT/HCPCS: 99283

== ENCOUNTER 2021-01-19 12:36 | Emergency (ER) | payer MEDICARE, MEDICAID ==
[~2021-01-19] VITALS: Ht 154.9 cm; Wt 45.5 kg
[2021-01-19 13:32] LABS: BASOPHILS % (AUTO) 0.6 % (0-1); EOSINOPHILS # (AUTO) 0.1 X10'3 (0-0.9); HEMOGLOBIN 14.5 g/dl (12.0-16.0); LYMPHOCYTES # (AUTO) 1.8 X10'3 (1.1-4.8); LYMPHOCYTES % (AUTO) 34.8 % (21-51); MEAN CORPUSCULAR HEMOGLOBIN 32.9 PG (27.0-31.0); MEAN CORPUSCULAR HGB CONC 34.6 g/dL (33.0-36.5); MEAN CORPUSCULAR VOLUME 95.1 FL (78-98); MEAN PLATELET VOLUME 7.2 FL (7.4-10.4); MONOCYTES # (AUTO) 0.5 X10'3 (0-0.9); MONOCYTES % (AUTO) 9.1 % (2-12); NEUTROPHILS # (AUTO) 2.7 X10'3 (1.8-7.7); NEUTROPHILS % (AUTO) 53.5 % (42-75); PLATELET COUNT 273 X10'3 (140-440); RED BLOOD COUNT 4.41 X10'6 (4.20-5.60); RED CELL DISTRIBUTION WIDTH 12.4 % (11.5-14.5); WHITE BLOOD COUNT 5.1 X10'3 (4.5-11.0)
[2021-01-19 13:44] LABS: ALANINE AMINOTRANSFERASE 16 U/L (12-78); ALBUMIN 3.5 G/DL (3.4-5.0); ALKALINE PHOSPHATASE 81 IU/L (46-116); ANION GAP 8 (8-16); ASPARTATE AMINO TRANSFERASE 8 U/L (10-37); BILIRUBIN,TOTAL 0.1 MG/DL (0.1-1.0); BLOOD UREA NITROGEN 19 MG/DL (7-18); BUN/CREATININE RATIO 26.4 (6.6-38.0); CHLORIDE 108 MMOL/L (99-107); CREATININE 0.72 MG/DL (0.40-0.90); GLUCOSE 122 MG/DL (70-104); POTASSIUM 3.8 MMOL/L (3.5-5.1); SODIUM 144 MMOL/L (135-145); TOTAL CARBON DIOXIDE 28.2 MMOL/L (24-32); TOTAL PROTEIN 6.9 G/DL (6.4-8.2); eGFR 82 ML/MIN
[2021-01-19] MEDS ORDERED: meclizine 12.5mg tablet PO ONE (14:55)
[2021-01-19 15:08] VITALS: BP 129/88
== END 2021-01-19 15:19 | disposition home or self-care (01) ==
LOC: ER 12:36
DX: H81.393 Other peripheral vertigo, bilateral (principal); F32.9 Major depressive disorder, single episode, unspecified; F20.9 Schizophrenia, unspecified; F12.90 Cannabis use, unspecified, uncomplicated; F15.90 Other stimulant use, unspecified, uncomplicated; Z90.89 Acquired absence of other organs; Z98.890 Other specified postprocedural states; Z72.89 Other problems related to lifestyle; Z60.2 Problems related to living alone; Z88.0 Allergy status to penicillin; Z88.5 Allergy status to narcotic agent; Z88.8 Allergy status to other drugs, medicaments and biological substances; Z79.899 Other long term (current) drug therapy
CPT/HCPCS: 36415; 71045; 80053; 83880; 84484; 85025; 93005; 99285; J8597

== ENCOUNTER 2021-04-24 11:58 | Emergency (ER) | payer MEDICARE, MEDICAID ==
[~2021-04-24] VITALS: Ht 154.9 cm; Wt 42.0 kg
[2021-04-24 12:22] VITALS: BP 138/91
== END 2021-04-24 23:28 | disposition left against medical advice (07) ==
LOC: ER 23:21
DX: K92.1 Melena (principal); R42 Dizziness and giddiness; R19.7 Diarrhea, unspecified; F12.90 Cannabis use, unspecified, uncomplicated; F15.90 Other stimulant use, unspecified, uncomplicated; Z72.89 Other problems related to lifestyle; Z88.0 Allergy status to penicillin; Z91.041 Radiographic dye allergy status; Z79.899 Other long term (current) drug therapy
CPT/HCPCS: 99281

== ENCOUNTER → 2021-06-05 | Emergency (ER) | payer MEDICARE, MEDICAID ==
[~2021-06-05] VITALS: Ht 154.9 cm; Wt 46.8 kg
[2021-06-05 14:48] VITALS: BP 173/86
[2021-06-05 15:21] LABS: CLARITY,URINE SLIGHTLY CLOUDY (Clear); COLOR,URINE STRAW (Yellow); UA COLLECTION TYPE CLN CATCH MIDSTREAM
[2021-06-05 15:21] LABS: BASOPHILS % (AUTO) 0.5 % (0-1); EOSINOPHILS # (AUTO) 0.1 X10'3 (0-0.9); EOSINOPHILS % (AUTO) 1.4 % (0-6); HEMATOCRIT 42.8 % (35.0-45.0); HEMOGLOBIN 14.6 g/dl (12.0-16.0); LYMPHOCYTES # (AUTO) 1.8 X10'3 (1.1-4.8); LYMPHOCYTES % (AUTO) 35.2 % (21-51); MEAN CORPUSCULAR HEMOGLOBIN 32.5 PG (27.0-31.0); MEAN CORPUSCULAR HGB CONC 34.1 g/dL (33.0-36.5); MEAN CORPUSCULAR VOLUME 95.4 FL (78-98); MONOCYTES # (AUTO) 0.6 X10'3 (0-0.9); MONOCYTES % (AUTO) 11.6 % (2-12); NEUTROPHILS # (AUTO) 2.7 X10'3 (1.8-7.7); NEUTROPHILS % (AUTO) 51.3 % (42-75); PLATELET COUNT 271 X10'3 (140-440); RED BLOOD COUNT 4.49 X10'6 (4.20-5.60); RED CELL DISTRIBUTION WIDTH 12.8 % (11.5-14.5); WHITE BLOOD COUNT 5.2 X10'3 (4.5-11.0)
[2021-06-05 15:23] LABS: GLUCOSE, URINE NEGATIVE (Neg); KETONES,URINE NEGATIVE (Neg); NITRITES, URINE NEGATIVE (Neg); OCCULT BLOOD,URINE SMALL (Neg); PROTEIN,URINE NEGATIVE (Neg); UROBILINOGEN,URINE 0.2 E.U/dL (0.2-1.0)
[2021-06-05 15:24] LABS: LEUKOCYTE ESTERASE ,URINE NEGATIVE (Neg)
[2021-06-05 15:28] LABS: MUCUS STRANDS NONE SEEN /LPF (Neg); SQUAMOUS EPITHELIAL CELL,UR FEW /LPF (FEW); TRANSITIONAL EPI CELLS,URINE FEW /HPF
[2021-06-05 15:29] LABS: BACTERIA,URINE FEW /HPF (Neg); RBC,URINE 0-2 /HPF (0-2); WBC,URINE 0-4 /HPF (0-4)
[2021-06-05 15:37] LABS: ALANINE AMINOTRANSFERASE 31 U/L (12-78); ALBUMIN 3.8 G/DL (3.4-5.0); ALKALINE PHOSPHATASE 89 IU/L (46-116); ANION GAP 6 (8-16); ASPARTATE AMINO TRANSFERASE 17 U/L (10-37); BILIRUBIN,TOTAL 0.3 MG/DL (0.1-1.0); BLOOD UREA NITROGEN 16 MG/DL (7-18); BUN/CREATININE RATIO 19.8 (6.6-38.0); CALCIUM 9.3 MG/DL (8.5-10.1); CHLORIDE 105 MMOL/L (99-107); CREATININE 0.81 MG/DL (0.40-0.90); GLUCOSE 100 MG/DL (70-104); LIPASE 125 U/L (73-393); POTASSIUM 4.2 MMOL/L (3.5-5.1); SODIUM 142 MMOL/L (135-145); TOTAL CARBON DIOXIDE 30.6 MMOL/L (24-32); TOTAL PROTEIN 7.5 G/DL (6.4-8.2); eGFR 72 ML/MIN
== END | disposition left against medical advice (07) ==
LOC: ER 14:11
DX: M54.50 Low back pain, unspecified (principal); R10.11 Right upper quadrant pain; F32.9 Major depressive disorder, single episode, unspecified; F20.9 Schizophrenia, unspecified; F12.90 Cannabis use, unspecified, uncomplicated; F15.90 Other stimulant use, unspecified, uncomplicated; Z90.89 Acquired absence of other organs; Z72.89 Other problems related to lifestyle; Z60.2 Problems related to living alone; Z98.890 Other specified postprocedural states; Z88.5 Allergy status to narcotic agent; Z88.0 Allergy status to penicillin; Z88.8 Allergy status to other drugs, medicaments and biological substances; Z79.899 Other long term (current) drug therapy
CPT/HCPCS: 36415; 80053; 81001; 83690; 85025; 99283

== ENCOUNTER 2021-10-16 10:59 | Emergency (ER) | payer MEDICARE, MEDICAID ==
[~2021-10-16] VITALS: Ht 154.9 cm; Wt 52.3 kg
[2021-10-16 11:24] VITALS: BP 119/78
[2021-10-16 12:03] LABS: BASOPHILS % (AUTO) 0.4 % (0-1); EOSINOPHILS % (AUTO) 0.9 % (0-6); HEMATOCRIT 39.4 % (35.0-45.0); HEMOGLOBIN 13.5 g/dl (12.0-16.0); LYMPHOCYTES # (AUTO) 1.8 X10'3 (1.1-4.8); LYMPHOCYTES % (AUTO) 37.9 % (21-51); MEAN CORPUSCULAR HEMOGLOBIN 31.3 PG (27.0-31.0); MEAN CORPUSCULAR HGB CONC 34.3 g/dL (33.0-36.5); MEAN CORPUSCULAR VOLUME 91.2 FL (78-98); MEAN PLATELET VOLUME 6.7 FL (7.4-10.4); MONOCYTES # (AUTO) 0.6 X10'3 (0-0.9); MONOCYTES % (AUTO) 11.8 % (2-12); NEUTROPHILS # (AUTO) 2.4 X10'3 (1.8-7.7); PLATELET COUNT 265 X10'3 (140-440); RED BLOOD COUNT 4.32 X10'6 (4.20-5.60); WHITE BLOOD COUNT 4.9 X10'3 (4.5-11.0)
[2021-10-16 12:19] LABS: ALANINE AMINOTRANSFERASE 25 U/L (12-78); ALBUMIN 3.6 G/DL (3.4-5.0); ALBUMIN/GLOBULIN RATIO 1.1 (1.1-1.5); ASPARTATE AMINO TRANSFERASE 16 U/L (10-37); BILIRUBIN,TOTAL 0.2 MG/DL (0.1-1.0); BLOOD UREA NITROGEN 14 MG/DL (7-18); BUN/CREATININE RATIO 17.7 (6.6-38.0); CALCIUM 8.4 MG/DL (8.5-10.1); CHLORIDE 106 MMOL/L (99-107); CREATININE 0.79 MG/DL (0.40-0.90); GLUCOSE 96 MG/DL (70-104); SODIUM 143 MMOL/L (135-145); TOTAL PROTEIN 6.9 G/DL (6.4-8.2); eGFR 74 ML/MIN
[2021-10-16 12:25] LABS: ANION GAP 10 (8-16); POTASSIUM 3.9 MMOL/L (3.5-5.1); TOTAL CARBON DIOXIDE 26.9 MMOL/L (24-32)
[2021-10-16 12:27] LABS: ETHANOL < 0.010 GM/DL (0.0-0.010)
[2021-10-16 13:12] LABS: CLARITY,URINE SLIGHTLY CLOUDY (Clear); COLOR,URINE YELLOW (Yellow); GLUCOSE, URINE NEGATIVE (Neg); KETONES,URINE TRACE mg/dl (Neg); LEUKOCYTE ESTERASE ,URINE NEGATIVE (Neg); NITRITES, URINE NEGATIVE (Neg); OCCULT BLOOD,URINE NEGATIVE (Neg); PROTEIN,URINE NEGATIVE (Neg)
[2021-10-16 13:24] LABS: URINE AMPHETAMINE SCREEN NEGATIVE (Neg); URINE BARBITUATE SCREEN NEGATIVE (Neg); URINE BENZODIAZEPINES SCREEN NEGATIVE (Neg); URINE CANNABINOID SCREEN NEGATIVE (Neg); URINE COCAINE SCREEN NEGATIVE (Neg); URINE METHADONE SCREEN NEGATIVE (Neg); URINE OPIATE SCREEN NEGATIVE (Neg); URINE PHENCYCLIDINE SCREEN NEGATIVE (Neg)
[2021-10-16 13:29] LABS: UA COLLECTION TYPE CLN CATCH MIDSTREAM
[2021-10-16 13:31] LABS: BACTERIA,URINE FEW /HPF (Neg); MUCUS STRANDS FEW /LPF (Neg); RBC,URINE 0-2 /HPF (0-2); SQUAMOUS EPITHELIAL CELL,UR MODERATE /LPF (FEW); WBC,URINE 0-4 /HPF (0-4)
== END 2021-10-16 13:09 | disposition home or self-care (01) ==
LOC: ER 10:59
DX: R53.1 Weakness (principal); R42 Dizziness and giddiness; J41.0 Simple chronic bronchitis; F12.90 Cannabis use, unspecified, uncomplicated; F15.90 Other stimulant use, unspecified, uncomplicated; Z72.89 Other problems related to lifestyle; Z90.49 Acquired absence of other specified parts of digestive tract; Z88.0 Allergy status to penicillin; Z91.041 Radiographic dye allergy status; Z79.899 Other long term (current) drug therapy
CPT/HCPCS: 36415; 80053; 80305; 80320; 81001; 85025; 99283